=== PATIENT | male | born 1935 | race Caucasian/White ===

== ENCOUNTER 2019-06-29 14:23 | Inpatient (IN) | payer MEDICARE, SELFPAY | END 2019-07-11 13:34 | DRG 690 | LOC: CHS2ND 06-26 10:49 | PROVIDERS: Admitting Provider Emergency Medicine; Visit Provider Emergency Medicine | DX: N39.0 Urinary tract infection, site not specified (principal); I48.20 Chronic atrial fibrillation, unspecified; F05 Delirium due to known physiological condition; I10 Essential (primary) hypertension; E11.9 Type 2 diabetes mellitus without complications; E78.5 Hyperlipidemia, unspecified; M54.9 Dorsalgia, unspecified; F03.90 Unspecified dementia, unspecified severity, without behavioral disturbance, psychotic disturbance, mood disturbance, and anxiety; S91.302D Unspecified open wound, left foot, subsequent encounter; S92.215D Nondisplaced fracture of cuboid bone of left foot, subsequent encounter for fracture with routine healing; Z91.81 History of falling | CPT/HCPCS: 36415; 70450; 70551; 72100; 73630; 73700; 73720; 80053; 82550; 83735; 84100; 85025; 85027; 85610; 85652; 86140; 87040; 87070; 87077; 87086; 87088; 87185; 87186; 87205; 97110; 97116; 97168; 97530; 97535; A9270; A9577; J1815; L2112 ==

== ENCOUNTER 2019-08-30 07:06 | Observation (INO) | payer MEDICARE, SELFPAY ==
[2019-08-30] VITALS (13 sets, daily range): BP systolic 111–182; BP diastolic 50–97; PULSE 55–92; RESP 16–20; TEMP 35.8–36.6; O2SAT 90–100; BMI 28.3
--- NOTE | ~2019-08-30 | XR_ITS ---
EXAMINATION: XR chest 1V portable EXAM DATE: 08/30/2019 08:10 INDICATION: Fall, seizure. TECHNIQUE: Portable AP frontal chest x-ray was obtained. Comparison is made to prior examination from 07/25/2019. FINDINGS: The lungs are clear. There are no pleural effusions. Cardiac silhouette is prominent but magnified on this AP technique. There is no pneumothorax suspected. The bones and soft tissues are unremarkable. IMPRESSION: No acute cardiopulmonary findings. Reviewed, dictated and finalized at location B. HOUSE DELIVERY DRIVER
--- NOTE | ~2019-08-30 | CT_ITS ---
EXAMINATION: CT brain wo con, CT cervical spine wo con EXAM DATE: 08/30/2019 08:09 INDICATION: Fall, head injury. Seizure. TECHNIQUE: Spiral CT of the head was performed without contrast. Axial, coronal and sagittal images were reviewed. Spiral CT of the cervical spine was performed without contrast. Axial images were rev iewed. Coronal and sagittal reformatted images were also reviewed. The dose-length product (DLP) fo r this examination was 605.33 (accession [id number]), 526.77 (accession [id number]) mGy-cm. The exposure was tailored according to patient size, and iterative reconstruction (ASIR) was used as additional dose reduction technique. Comparison is made to prior examination from 08/07/2019. FINDINGS: HEAD CT: There is no acute intraparenchymal hemorrhage. No evidence of intraparenchymal brain mass l esion. No evidence of acute infarction. There is mild to moderate periventricular and subcortical hy podensity, nonspecific but probably related to small vessel ischemic disease. There is mild to mode rate prominence of the sulci and ventricles related to cerebral atrophy. There is intracranial spencer tid arteriosclerosis. There is no mass effect or midline shift. There is no obstructive hydrocephal us suspected. There are no extra-axial collections. There are no acute calvarial fractures. Patien t has had bilateral ocular lens surgery. There is moderate-sized right frontal scalp contusion/hemat darlene. The visualized sinuses and mastoid air cells are well aerated. CERVICAL CT: There is no evidence of acute cervical fracture. The odontoid process is intact. Pre- dens space is normal. Prevertebral soft tissue is normal. There are no soft tissue abnormalities id entified. There is no disc space widening or traumatic vertebral body subluxation suspected. Advanc ed cervical spondylosis. A detailed level by level evaluation of spondylosis can be added as addendu m if requested. IMPRESSION: 1. No acute intracranial or cervical findings. 2. Age-related intracranial findings. 3. Advanced cervical spondylosis. 4. Frontal scalp contusion/hematoma Reviewed, dictated and finalized at location B. CLEANER IMPRESSION: 1. No acute intracranial or cervical findings. 2. Age-related intracranial findings. 3. Advanced cervical spondylosis. 4. Frontal scalp contusion/hematoma
--- NOTE | 2019-08-30 07:21 | ECG_ITS ---
Measurements Intervals [place] Rate: 66 P: FL: 0 QRS: 81 QRSD: 109 T: 56 QT: 411 QTc: 431 Interpretive Statements ATRIAL FIBRILLATION INCOMPLETE RIGHT BUNDLE BRANCH BLOCK BASELINE ARTIFACT- II, III, AVF ABNORMAL ECG Electronically Signed On 08-30-2019 9:54:04 REPORTER by Pradeep Mercado D.O.
[2019-08-30] MEDS: LORAZEPAM INJ 2 MG/ML VIAL 0.5 MG IV PUSH (07:29)
[2019-08-30] MEDS: TETANUS,DIPHTHERIA,AC PERTUSSIS ADULT 0.5 ML (ADACEL) IM (07:30)
--- NOTE | 2019-08-30 07:37 | ED.SEIZURE ---
HPI - Seizure General Chief Complaint: Seizure Stated Complaint: fell seizures Time Seen by Provider: 08/30/19 07:20 Source: EMS, RN notes reviewed, old records reviewed and other (correction records) Mode of arrival: EMS Limitations: clinical condition History of Present Illness HPI Narrative: Ernst is a 54-year-old male patient. He is brought to the emergency room by ambulance from the local assisted. History is from the assisted papers and from the phone conversation between the emergency room nurse and the assisted personnel. Ernst was seen yesterday in the emergency room after he had a seizure. He was evaluated in the emergency room and sent back to the assisted. He was evaluated . Patient is a DNR with comfort measures only. A CT of the head was not done yesterday. According to the assisted records, the patient has muscle wasting and atrophy. He has a fracture of the cuboid bone in the left foot and yesterday he had a boat on the left foot. Today he does not have a boot. He has receptive -expressive language disorder. He has history of behavioral problems. He has history of insomnia, hypertension, muscle weakness, generalized. He had history of repeated falls. History of hypertension and type 2 diabetes mellitus without complications. There is diagnosis of unspecified altered mental status in the assisted diagnosis information. Today the patient had an unwitnessed fall. He was found lying face down on the floor by staff. staff checked his vital signs, call the EMS and sent him to the emergency room by ambulance. The patient appears to be postictal upon arrival. Both pupils are about 3 mm round and they do react to light. There is a hematoma to the right frontal area. There are skin abrasions to the forehead and to the dorsal aspect of the right and. The patient is noted to be moving all 4 extremities. He flexes the hips and knees. He moves both upper extremities. There is no external rotation of the feet. He mumbles a few words which are not intelligible. The only scar of surgery is around the umbilicus which apparently could be from an umbilical hernia repair. I do not see any pacemaker implant in the chest. There is a diagnosis of atrial fibrillation also on the chart. However, according to the assisted chart, he is not on any anticoagulation. an electrocardiogram done in the emergency room shows atrial fibrillation with a ventricular rate of bpm. No history is obtainable from the patient. From the assisted personal report to our emergency room nurse, there was no history of any vomiting. The abdomen is soft and no tenderness could be elicited. Normal bowel sounds are heard. yesterday the patient was apparently found to have some UTI and he was started on Augmentin twice a day. His other medications include 50 mg p.o. daily head. This may be both for hypertension as well as rate control. MD complaint: seizure Onset (ago): unknown Description of Episode: other ( Unknown how long he was down on the floor.) Witnessed: No Seizure History: Yes (No history of seizure before yesterday.) Place: correction Possible Precipitating Event: other ( unknown) Associated symptoms: confusion and other ( No history of fever. Precipitating events unknown.) Treatments prior to arrival: other ( See HPI narrative for details) Related Data Home Medications Medication Instructions Recorded Confirmed amoxicillin-pot clavulanate 1 tablet PO Q12H 08/30/19 08/30/19 [Augmentin] cranberry fruit [cranberry] 450 mg PO TID 08/30/19 08/30/19 fluticasone propionate [Allergy 1 spray NASAL DAILY PRN 08/30/19 08/30/19 Relief (fluticasone)] loratadine [Allergy Relief 10 mg PO DAILY PRN 08/30/19 08/30/19 (loratadine)] magnesium hydroxide [Milk Of 5 ml PO DAILY PRN 08/30/19 08/30/19 Magnesia Concentrated] metoprolol succinate 50 mg PO DAILY 08/30/19 08/30/19 Allergies Allergy/AdvReac Type Severity
[2019-08-30 07:43] LABS: Basophils Absolute Auto 0.04 K/mm3 (0.00-0.10); Basophils Percent Auto 0.3 % (0.0-1.0); Eosinophils Absolute Auto 0.12 K/mm3 (0.02-0.50); Eosinophils Percent Auto 0.9 % (1.0-6.0); Hematocrit 38.9 % (37.0-46.0); Hemoglobin 13.4 g/dL (12.4-15.3); Immature Granulocyte Absolute 0.06 K/mm3 (0.00-0.00); Immature Granulocyte Percent A 0.4 % (0.0-0.0); Lymphocytes Absolute Auto 1.69 K/mm3 (1.10-4.50); Lymphocytes Percent Auto 12.6 % (18.0-42.0); Mean Corpuscular HGB Conc 34.4 g/dL (32.0-36.0); Mean Platelet Volume 9.4 fl (8.7-11.0); Monocytes Absolute Auto 0.75 K/mm3 (0.10-0.90); Monocytes Percent Auto 5.6 % (2.0-11.0); Neutrophils Absolute Auto 10.8 K/mm3 (1.7-7.2); Neutrophils Percent Auto 80.2 % (50.0-70.0); Platelet Count Result 251 K/mm3 (150-420); Red Blood Count 4.47 M/mm3 (4.70-6.10); Red Cell Distribution Width 13.6 % (11.6-14.4); White Blood Count 13.5 K/mm3 (4.8-10.8)
[2019-08-30 07:56] LABS: INR 1.1; Partial Thromboplastin Time 26.7 SEC (22.3-31.6); Prothrombin Time 11.1 Seconds (9.64-11.0)
[2019-08-30 08:09] LABS: Creatine Kinase 154 U/L (39-308); Magnesium 1.4 mg/dL (1.8-2.4)
[2019-08-30 08:11] LABS: Troponin I < 0.02 ng/mL (0.00-0.056)
[2019-08-30 08:16] LABS: Lactic Acid 4.9 mmol/L (0.4-2.0)
[2019-08-30] MEDS: MAGNESIUM SULF 2 GM/WATER 50ML 2 GM/50 ML BAG IVPB (08:41)
[2019-08-30 08:44] LABS: Alanine Aminotransferase 16 U/L (16-63); Albumin Level 3.4 g/dL (3.4-5.0); Alkaline Phosphatase 63 U/L (46-116); Anion Gap 19.1 mmol/L (7-16); Aspartate Amino Transferase 22 U/L (15-37); Bilirubin,Total 0.9 mg/dL (0.00-1.00); Blood Urea Nitrogen 14 mg/dL (7-18); Calcium 8.6 mg/dL (8.5-10.1); Carbon Dioxide 23 mmol/L (21-32); Chloride 100 mmol/L (98-108); Estimated CRCL calculation 41 ml/min; Estimated Glomerular Filt Rate > 60; Glucose 176 mg/dL (70-99); Osmolality Calculated 290 mOsm/kg (285-295); Potassium 4.1 mmol/L (3.5-5.1); Sodium 138 mmol/L (136-145)
[2019-08-30 08:45] LABS: Erythrocyte Sedimentation Rate 15 mm/hr (0-20)
--- NOTE | 2019-08-30 08:50 | PC.NURSE ---
ERP spoke c pts. POA/niece and discussed pts. care and POC. Pt. will be made 23hr. obs.
--- NOTE | 2019-08-30 09:12 | PC.NURSE ---
Call placed to floor, spoke to Buffy, bed 207 assigned for 23 hr. obs.
--- NOTE | 2019-08-30 09:50 | PC.NURSE ---
Up with difficulty, 2 assist, very unsteady, voided in urinal being held by staff, back to bed, attends applied, remains confused, does follow simple direction
--- NOTE | 2019-08-30 10:02 | PC.NURSE ---
Here from nursing due to fall, possible sz, presents confused, restless, oriented to self, side rails up and call light in reach, oxygen not started due to sats 97%, dressing from her to left forearm, left elbow and right hand in place
[2019-08-30] MEDS: SODIUM CHLORIDE 0.9% IV 1,000 ML 75 ML IV CONT (10:31)
[2019-08-30 11:48] LABS: Glucose Point of Care 150 (65-105)
--- NOTE | 2019-08-30 12:27 | PM.IMHP ---
H&P: HPI History of Present Illness Chief complaint: fell seizures Narrative: Ernst Hinojosa is a 84 year old male that presented to the ED post fall with head trauma secondary to possible seizure activity. Past medical history of AFib, chronic back pain, type 2 diabetes, hypertension, according to notes patient resides in a local alf. patient came to our emergency room yesterday after he had a possible seizure. According to alf staff members patient tremors. He was seen in our emergency room yesterday and diagnosed with urinary tract infection due to leukocytes in his. Patient does have a long history of urinary tract infections last August 15, 2019. He does have a fracture of cuboid bone in his sleep Dr. foot that he wears a boot on and does have a history of receptive expressive language disorder and history of behavior problems with insomnia. It was also noted that he was also confused. Patient did have an unwitnessed fall while in the alf today. They are unsure of how long he had been on the floor. He was found face down on the floor by staff members. EMS was called and patient was transported to this ED . He does have a hematoma on his right frontal area with bruises around both eyes. He is able to follow commands, move all extremities, hand school admissions representative equal, able to answer questions patient is being admitted for altered mental status, syncopal episode with possible seizure activity and the UTI. There was a chest x-ray performed while in the ED which was unremarkable the CT of the head did show frontal scalp contusion and hematoma the cervical spine CT did indicate advanced cervical spondylosis , EKG yesterday and today indicate a AFib. Patient's white blood cells on admission was 14.7 is now 13.5 lactic acid was 4.9 on admission is currently within normal limits. Magnesium was 1.4 he did receive a Mag rider. As noted earlier patient's UA leukocytes was positive. Patient's will continue antibiotics immediately placed on IV antibiotics due to his possible inability to swallow. Patient's vital signs are 35.8, 55, 20, 97%, 182/97. Patient previous blood pressure week reading was 113/50. In his previous heart rate was within normal limits. Patient denies SOB, CP, palpitation, extremity numbness, lightheadness, dizziness, constipation, diarrhea, or chills or fever. Review of Systems Constitutional: Constitutional: Denies chills, Reports fatigue and Denies headache(s) Cardiovascular: Cardiovascular: Denies chest pain, Denies chest pain at rest, Denies pedal edema and Denies lightheadedness Respiratory: Respiratory: Denies chest congestion, Denies cough, Denies dyspnea and Denies wheezing Gastrointestinal: Gastrointestinal: Reports no additional gastrointestinal complaints Musculoskeletal: Musculoskeletal: Reports no additional musculoskeletal complaints Psychiatric: Psychiatric: Reports confusion [facility] Past Medical History Medical History (Updated 08/30/19 @ 13:21 by MARV Sprague) Atrial fibrillation (Unknown) Chronic back pain greater than 3 months duration (Unknown) DMII (diabetes mellitus, type 2) (Unknown) HTN (hypertension) Hyperlipidemia Surgical History Surgical History (Updated 08/30/19 @ 07:58 by Damon Luciano MD) H/O umbilical hernia repair Family History Family History Mother Family history of type 2 diabetes mellitus Social History Social History Smoking status: Unknown if ever smoked Tobacco type: cigarettes Second hand tobacco smoke exposure: No Smoking end date: 08/21/98 Alcohol intake: former Substance use: never Substance use type: does not use Additional living arrangements comments: ,has a female friend dine-in with him 3-4 nights every week. 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 [employer]
--- NOTE | 2019-08-30 12:50 | PC.NURSE ---
Assisted patient with use of urinal, stayed in bed this time, tolerated better, able to take some oral fluids wthout cough or trouble swallowing, fluids infusing, more oriented, is oriented to person and place, recognizes friend that is here, telemetry afib, rate controlled
[2019-08-30 13:17] LABS: Add Urine Microscopic? NO; Appearance Urine Clear (Clear); Bilirubin Urine Negative (Negative); Blood Urine Negative (Negative); Color Urine Yellow (Yellow); Glucose Urine UA Negative (Negative); Ketones Urine Negative (Negative); Leukocyte Esterase Ur Negative LEU/UL (Negative); Nitrate Urine Negative (Negative); Protein Urine Negative (Negative); Specific Grav Ur 1.015 (1.010-1.020); Urobilinogen Urine 0.2 mg/dL (0.2-1.0)
--- NOTE | 2019-08-30 13:58 | PC.NURSE ---
Dressing to arms dry and intact at this time, fluids infusing, telemetry afib, remains oriented to person, can be argumentative at times, mostly cooperative, side rails up and call light in reach
--- NOTE | 2019-08-30 14:50 | PC.NURSE ---
Patient in bed with family at bedside. No evidence of seizure activity, patient alert, confused at times. Afib per monitoring coordinator.
[2019-08-30] MEDS: IBUPROFEN 400 MG TABLET PO (15:10)
[2019-08-30] MEDS: LIDOCAINE 5% PATCH 1 PATCH TRANSDERM (15:11)
--- NOTE | 2019-08-30 15:50 | PC.NURSE ---
Patient in bed resting with family at bedside. No seizure activity. Patient remains afib per telemetry, chronic condition.
[2019-08-30 16:57] LABS: Glucose Point of Care 131 (65-105)
[2019-08-30] MEDS: metFORMIN HCL 500 MG TABLET PO (17:00)
[2019-08-30] MEDS: MAGNESIUM OXIDE 400 MG TABLET PO (17:01)
--- NOTE | 2019-08-30 17:50 | PC.NURSE ---
Patient sitting up in bed, vitals remain stable. No evidence of seizure activity observed. Patient remains in afib per bus monitor, usual for patient. Visitors in room
[2019-08-30] MEDS: TEMAZEPAM 15 MG CAPSULE PO ×2 (18:49→21:24)
--- NOTE | 2019-08-30 18:50 | PC.NURSE ---
Patient in bed watching television. VSS. Telemetry monitoring continues, patient in Afib, chronic condition. No seizure activity observed.
--- NOTE | 2019-08-30 19:50 | PC.NURSE ---
Patient in bed resting quietly. Afib per telemetry, chronic condition. No evidence of seizure activity.
--- NOTE | 2019-08-30 20:50 | PC.NURSE ---
Patient in bed resting with eyes closed. VSS. Afib per tele, persistent condition. No evidence of seizure activity observed.
[2019-08-30] MEDS: SIMVASTATIN 10 MG TABLET 20 MG PO (21:24)
[2019-08-30] MEDS: MELATONIN 3 MG TABLET PO (21:24)
[2019-08-30 21:35] LABS: Glucose Point of Care 157 (65-105)
--- NOTE | 2019-08-30 21:50 | PC.NURSE ---
Patient in bed resting comfortably. VSS. Telemetry monitoring continues, afib per patients usual condition. No seizure activity noted.
--- NOTE | 2019-08-30 22:11 | PC.NURSE ---
Addendum entered by Estrella Gill RN 08/30/19 22:13: Correct time 16:50 Original Note: Patient sitting up in bed, afib per telemetry monitoring continues, persistent condition. VSS. No seizure activity observed. Family at bedside
--- NOTE | 2019-08-31 00:47 | PC.NURSE ---
Asleep, no distress, takes oral fluids well, telemetry afib 40-50's, no ectopics noted, side rails up for safety and room near desk, bed alarm
--- NOTE | 2019-08-31 02:36 | PC.NURSE ---
Sleeping, no distress, telemetry afib, call light near, checking on frequently, side rails up for safety
[2019-08-31 03:20] VITALS: BP 130/58; PULSE 61; RESP 18; TEMP 36.1; O2SAT 95
--- NOTE | 2019-08-31 03:22 | PC.NURSE ---
Slept through vital signs being taken, arouses to voice, falls back to sleep immediately, telemetry afib
--- NOTE | 2019-08-31 04:19 | PC.NURSE ---
Assisted patient to stand then encouraged to sit to use urinal, argumentative at first, did follow direction, remains confused to time and place, back to laying position in bed with staff assist, no change in telemetry remains afib, call light in reach and side rails up
[2019-08-31 05:18] LABS: Basophils Absolute Auto 0.04 K/mm3 (0.00-0.10); Basophils Percent Auto 0.4 % (0.0-1.0); Eosinophils Absolute Auto 0.26 K/mm3 (0.02-0.50); Eosinophils Percent Auto 2.5 % (1.0-6.0); Hemoglobin 13.9 g/dL (12.4-15.3); Immature Granulocyte Absolute 0.05 K/mm3 (0.00-0.00); Immature Granulocyte Percent A 0.5 % (0.0-0.0); Lymphocytes Absolute Auto 2.08 K/mm3 (1.10-4.50); Lymphocytes Percent Auto 20.3 % (18.0-42.0); Mean Corpuscular HGB Conc 33.9 g/dL (32.0-36.0); Mean Corpuscular Hemoglobin 29.4 pg (27.0-31.0); Mean Corpuscular Volume 86.9 fL (78.0-102.0); Mean Platelet Volume 9.6 fl (8.7-11.0); Monocytes Absolute Auto 0.87 K/mm3 (0.10-0.90); Monocytes Percent Auto 8.5 % (2.0-11.0); Neutrophils Percent Auto 67.8 % (50.0-70.0); Platelet Count Result 216 K/mm3 (150-420); Red Blood Count 4.72 M/mm3 (4.70-6.10); Red Cell Distribution Width 13.9 % (11.6-14.4); White Blood Count 10.3 K/mm3 (4.8-10.8)
[2019-08-31 05:38] LABS: Alanine Aminotransferase 14 U/L (16-63); Albumin Level 3.2 g/dL (3.4-5.0); Alkaline Phosphatase 59 U/L (46-116); Anion Gap 11.9 mmol/L (7-16); Aspartate Amino Transferase 19 U/L (15-37); Blood Urea Nitrogen 13 mg/dL (7-18); Calcium 8.8 mg/dL (8.5-10.1); Carbon Dioxide 29 mmol/L (21-32); Chloride 101 mmol/L (98-108); Estimated CRCL calculation 50 ml/min; Estimated Glomerular Filt Rate > 60; Glucose 127 mg/dL (70-99); Osmolality Calculated 288 mOsm/kg (285-295); Potassium 3.9 mmol/L (3.5-5.1); Sodium 138 mmol/L (136-145); Total Protein 6.9 g/dL (6.4-8.2)
--- NOTE | 2019-08-31 06:11 | PC.NURSE ---
sat up to use urinal, refused help, did allow us to stand by, returned to bed on own, very unsteady, bed alarm continued
[2019-08-31 07:54] VITALS: BP 149/75; PULSE 78; RESP 16; TEMP 36; O2SAT 97
[2019-08-31] MEDS: ACETAMINOPHEN 500 MG TABLET 1000 MG PO (09:21)
[2019-08-31 09:30] VITALS: PULSE 78
[2019-08-31] MEDS: MAGNESIUM OXIDE 400 MG TABLET PO ×2 (09:30→13:00)
[2019-08-31] MEDS: metFORMIN HCL 500 MG TABLET PO (09:30)
[2019-08-31] MEDS: METOPROLOL SUCCINATE EXT REL 50 MG TABCR PO (09:30)
[2019-08-31] MEDS: ASPIRIN 325 MG ENTERIC TABLET PO (09:30)
[2019-08-31 10:41] LABS: Magnesium 1.6 mg/dL (1.8-2.4); Phosphorus 4.3 mg/dL (2.6-4.7)
[2019-08-31] MEDS: ESCITALOPRAM OXALATE 10 MG TABLET PO (10:58)
[2019-08-31 11:30] LABS: Glucose Point of Care 177 (65-105)
[2019-08-31] MEDS: MAGNESIUM SULF 2 GM/WATER 50ML 2 GM/50 ML BAG IVPB (11:33)
[2019-08-31 12:00] VITALS: BP 136/76; PULSE 78
[2019-08-31 12:05] VITALS: BP 144/67; PULSE 74
--- NOTE | 2019-08-31 12:08 | PM.DS ---
DS: Diagnosis Admitting Diagnosis Admitting Diagnosis: Unspecified convulsions Discharge Diagnosis (1) New onset seizure: Code(s): R56.9 - Unspecified convulsions Status: Acute Assessment and Plan: according to staff reproduction production manager members at longterm - CT of the head indicate right frontal hematoma/ contusion - continue Concussion monitoring as noted in the Discharge Instructions - continue neuro checks - Telemetry has shown no ectopy or new arrthymia, he continues to have chronic a.fib. -Sagarist Robin Called to Dr. Huerta neurologist at [facility] at [phone] to discuss patient. We have decided that we will monitor the patient with neuro checks and if he has any more witnessed seizure activities we will transfer patient to [facility]. - No seizure activity noted for the past 24 hours. Will discharge patient back to longterm for continued care and monitoring. - will place patient on fall precautions - patient currently not on medication for seizures at this time (2) Atrial fibrillation: Qualifiers: Atrial fibrillation type: longstanding persistent Qualified Code(s): I48.11 - Longstanding persistent atrial fibrillation Code(s): I48.91 - Unspecified atrial fibrillation Status: Acute Assessment and Plan: controlled - patient currently on aspirin high risk for falls ( patient and family previously discussed and agreed to discontinue Coumadin due to his high number of falls while at home/hospital/longterm) - continue metoprolol - patient did have 1 isolated incident of a heart rate of 55 (lowest recorded during this hospitalization), -longterm will continue to monitor patient and titrate medication as needed - continue telemetry and vital signs as ordered (3) Diabetes mellitus: Qualifiers: Diabetes mellitus complication status: without complication Diabetes mellitus senior care insulin use: without senior care use Diabetes mellitus type: type 2 Qualified Code(s): E11.9 - Type 2 diabetes mellitus without complications Code(s): E11.9 - Type 2 diabetes mellitus without complications Status: Acute Assessment and Plan: blood sugar below 200 - continue Accu-Cheks as ordered, metformin, low dose sliding scales added with hypoglycemic protocol. -Will adjust medication as needed -no hypoglycemia noted during hospitalization. (4) UTI (urinary tract infection): Code(s): N39.0 - Urinary tract infection, site not specified Status: Acute Assessment and Plan: - previous UA indicated leukocytes - the patient previously on Augmentin, changed IV antibiotics due to patient's inability to swallow at admission. - patient was eating and drinking and swallowing pills fine today, no difficulties whatsoever. - patient has a long history of UTIs. - no UA culture collected at this time patient previously started on antibiotics -WBC = 10.3 today - patient received IV antiobiotics while inpatient, but can return to oral antibiotics at this time/at discharge. (5) Left cuboid fracture: Code(s): S92.212A - Displaced fracture of cuboid bone of left foot, initial encounter for closed fracture Status: Acute Assessment and Plan: - continue to use boot - F/U with tank storage supervisor in 2 days. - examined both feet, no wounds - all healed, no edema, no swelling. (6) Chronic back pain greater than 3 months duration: Onset Date: Unknown Code(s): M54.9 - Dorsalgia, unspecified; G89.29 - Other chronic pain Status: Acute Assessment and Plan: - continue pain medication - was place lidocaine patch to back avoiding narcotics. controlled pain today, no complaints from patient and he is able to sit up and ambulate without discomfort. (7) Hyperlipidemia: Code(s): E78.5 - Hyperlipidemia, unspecified Status: Acute Assessment and Plan: continue statins (8) HTN (hypertension): C
[2019-08-31 12:10] VITALS: BP 139/83; PULSE 71
[2019-08-31] MEDS: LIDOCAINE 5% PATCH 1 PATCH TRANSDERM (13:00)
--- NOTE | 2019-08-31 14:00 | PC.NURSE ---
Report called to Shanta at [facility]
--- NOTE | 2019-08-31 14:11 | PC.NURSE ---
Patient transported off of floor to fpc by [facility] from [facility].
--- NOTE | 2019-09-06 10:22 | PC.NURSE ---
Discharge Call Back [phone] halfway RN stated patient is doing fine, There were no problems with the discharge instructions or medications.
== END 2019-08-31 14:10 ==
LOC: CHSED 07:53 → CHS2ND 09:18
PROVIDERS: Nurse Practitioner; Admitting Provider Surgery; Emergency Provider Surgery; PCP Family Medicine; Visit Provider Surgery
DX: R56.9 Unspecified convulsions (principal); E83.42 Hypomagnesemia; E87.2 Acidosis; S00.83XA Contusion of other part of head, initial encounter; N39.0 Urinary tract infection, site not specified; I48.20 Chronic atrial fibrillation, unspecified; S92.212D Displaced fracture of cuboid bone of left foot, subsequent encounter for fracture with routine healing; I10 Essential (primary) hypertension; E11.9 Type 2 diabetes mellitus without complications; E03.9 Hypothyroidism, unspecified; E78.5 Hyperlipidemia, unspecified; G89.29 Other chronic pain; M54.5 Low back pain; W19.XXXA Unspecified fall, initial encounter; Y92.129 Unspecified place in nursing home as the place of occurrence of the external cause; Z91.81 History of falling
CPT/HCPCS: 36415; 70450; 71045; 72125; 80053; 81003; 82550; 82553; 83605; 83735; 84100; 84484; 85025; 85610; 85652; 85730; 87040; 90471; 90715; 93005; 96361; 96365; 96366; 96367; 96375; 97161; 99285; A9270; G0378; J0696; J2060; J3475; J7030

== ENCOUNTER 2019-09-16 14:44 | Emergency (ER) | payer MEDICARE, SELFPAY ==
--- NOTE | ~2019-09-16 | CT_ITS ---
EXAMINATION: CT brain wo con DATE: 09/16/2019 16:44 INDICATION: Confusion. TECHNIQUE: Computed tomography (CT) of the head was performed without intravenous contrast. The mA wa s adjusted according to patient size. Iterative reconstruction technique was employed. The dose-lengt h product was 1135.00 mGy-cm. COMPARISON: Head CT 08/30/2019 FINDINGS: Motion artifact is noted. There are scattered areas of low attenuation in the cerebral whit e matter. There is no intracranial hemorrhage, acute infarction, or abnormal intracranial mass lesion . The ventricles are normal in size. There are likely changes of ocular lens replacement surgeries. T he mastoid air cells are normal. There is mild mucosal thickening in the paranasal sinuses. IMPRESSION: 1. Unchanged mild nonspecific cerebral white matter disease, which likely represents chronic small ve ssel ischemic disease. Reviewed, dictated and finalized at location A. EKEEPING MANAGER IMPRESSION: 1. Unchanged mild nonspecific cerebral white matter disease, which likely repre sents chronic small vessel ischemic disease.
--- NOTE | ~2019-09-16 | CT_ITS ---
EXAMINATION: CT abdomen pelvis wo con DATE: 09/16/2019 18:01 INDICATION: Sclerotic lesion. Frequent UTI. TECHNIQUE: Computed tomography (CT) of the abdomen and pelvis was performed without intravenous contr ast. The dose-length product was 992.96 mGy-cm. COMPARISON: CT dated 10/23/2008 and chest x-ray dated 09/16/2019 FINDINGS: There are groundglass opacities in the right lower lobe. Cardiomegaly. No significant pleur al or pericardial effusion. There are calcified granulomas in the spleen. There are gallstones. The s pleen, pancreas, adrenal glands and left kidney are unremarkable. There is a low-density mass in the right kidney measuring 2 cm, compatible with cysts. No hydronephrosis. There are renal arterial calci fications. There is atherosclerosis of the aorta without aneurysm. There appears to be chronic dissec tion unchanged. Mild diffuse bladder wall thickening with enlarged prostate gland. There is moderate- severe lumbar spondylosis. No osteolytic or osteoblastic lesions are seen. IMPRESSION: 1. Thickened bladder wall, likely due to outlet obstruction although cystitis should be considered in the appropriate clinical setting. Enlarged prostate gland. 2: Cholelithiasis. 3: Focal groundglass opacities right lower lobe, nonspecific. Reviewed, dictated and finalized at location A. SIVE GRINDER IMPRESSION: 1. Thickened bladder wall, likely due to outlet obstruction although cystitis s hould be considered in the appropriate clinical setting. Enlarged prostate glan d. 2: Cholelithiasis. 3: Focal groundglass opacities right lower lobe, nonspecific.
--- NOTE | ~2019-09-16 | XR_ITS ---
XR chest 1V portable 09/16/2019 15:40 Indication: Syncope. Atrial fibrillation. Procedure: 2 view chest Comparison: Comparison to multiple prior studies sequentially, with oldest reviewed study dated 11/06. Findings: Heart size normal. Left basilar atelectasis. No focal pneumonia, edema or effusion. No acut e osseous abnormality. There is atherosclerosis. There is sclerosis in the right clavicle and scapula . Consider metastatic disease there is a history of malignancy. Impression: 1: Left basilar atelectasis. 2: Sclerosis of the right clavicle and scapula. If there is a history of malignancy, consider metast atic disease. Reviewed, dictated and finalized at location A. CLOSING MACHINE TENDER Impression: 1: Left basilar atelectasis. 2: Sclerosis of the right clavicle and scapula. If there is a history of malig an, consider metastatic disease.
[2019-09-16 14:50] VITALS: BP 119/60; PULSE 74; RESP 20; TEMP 36.6; O2SAT 95
--- NOTE | 2019-09-16 15:16 | ED.AMS ---
HPI - Altered Mental Status General Chief Complaint: Altered Mental Status Stated Complaint: sent from doctor Source: family Mode of arrival: wheelchair Limitations: other ( has a boot on left foot from an old fracture. Has dementia) History of Present Illness HPI narrative: Ernst is an 84-year-old male patient. He is a resident at the [facility] he is brought to the emergency room by family. His and daughter are with him. History is obtained from the and daughter. Ernst has had problems with behavior. He has history of dementia. He gets aggressive at times. Recently he has fallen down a couple of times. He has had a fracture of the left foot and he is seeing the orthopedic surgeon. His recheck appointment with the orthopedic surgeon is next week. He had also fallen down about 10 days ago and had some ecchymosis to the face. This seems to be slowly resolving. He did not fall down today. However per the [facility] staff, Ernst has become aggressive. By the time he came to the emergency room, according to the and daughter, is back to baseline status. They say that he usually becomes aggressive and his behavior changes when he has a urinary tract infection. He has been recently treated for the same. Ernst is hard of hearing. He does understand when spoken close to the left ear. He uses hearing aids. He has been admitted to this hospital in the recent past for similar problems. Ernst has history of chronic atrial fibrillation. He had been on Coumadin but because of his repeated falls, he has been taken off of it. He currently is taking aspirin 325 mg daily. His rate is controlled at 74. He is allergic to nitrofurantoin and morphine. His other medications include escitalopram 10 mg daily ibuprofen, lidocaine patch loratadine magnesium hydroxide, magnesium oxide, melatonin. He has history of type 2 [id number] diabetes mellitus. He is on metformin 500 mg p.o. twice a day. For rate control is on metoprolol 50 mg daily. He has hypercholesterolemia and takes simvastatin 20 mg at bedtime. He is on temazepam 15 mg at bedtime p.r.n.. He recently has been on sulfa. complaint: altered mental status Timing confirmed by: family member Severity: moderate Consistency of symptoms: waxing and waning Context: history of similar presentation and diabetes Associated symptoms: other ( Ernst denies chest pain abdominal pain fever or cough.) Related Data Home Medications Medication Instructions Recorded Confirmed cranberry 450 mg PO TID 08/30/19 09/16/19 fluticasone propionate [Allergy 1 spray NASAL DAILY PRN 08/30/19 09/16/19 Relief (fluticasone)] loratadine [Allergy Relief 10 mg PO DAILY PRN 08/30/19 09/16/19 (loratadine)] magnesium hydroxide [Milk Of 30 ml PO DAILY PRN 08/30/19 09/16/19 Magnesia Concentrated] metoprolol succinate 50 mg PO DAILY 08/30/19 09/16/19 menthol 5 mg lozenges 5 mg PO .hs PRN each 09/05/19 09/16/19 Allergies Allergy/AdvReac Type Severity Reaction Status Date / Time morphine Allergy Intermediate Unknown Verified 08/30/19 07:38 nitrofurantoin Allergy Unknown Verified 08/30/19 07:38 Review of Systems Review of Systems: All systems reviewed & are unremarkable except as noted in HPI and below Constitutional: Constitutional: Reports as per HPI, Denies chills and Denies fever(s) Eyes: Eyes: Reports as per HPI and Denies change in vision ENT: Reports as per HPI, Denies dysphagia, Denies dizziness and Denies sore throat Cardiovascular: Cardiovascular: Reports as per HPI, Denies chest pain and Denies radiating jaw, neck or arm pain Respiratory: Respiratory: Reports as per HPI, Denies cough, Denies dyspnea and Denies wheezing Gastrointestinal: Gastrointestinal: Reports as per HPI, Denies abdominal pain, Denies diarrhea and Denies vomiting Genitourinary: Genitourinary: Reports no additional male genitourinary complaints, Denies hematuria and Denies dysur
[2019-09-16 15:33] LABS: Basophils Absolute Auto 0.06 K/mm3 (0.00-0.10); Basophils Percent Auto 0.5 % (0.0-1.0); Eosinophils Absolute Auto 0.27 K/mm3 (0.02-0.50); Eosinophils Percent Auto 2.1 % (1.0-6.0); Hematocrit 44.4 % (37.0-46.0); Hemoglobin 15.3 g/dL (12.4-15.3); Immature Granulocyte Absolute 0.05 K/mm3 (0.00-0.00); Immature Granulocyte Percent A 0.4 % (0.0-0.0); Lymphocytes Absolute Auto 1.93 K/mm3 (1.10-4.50); Lymphocytes Percent Auto 14.9 % (18.0-42.0); Mean Corpuscular HGB Conc 34.5 g/dL (32.0-36.0); Mean Corpuscular Hemoglobin 29.8 pg (27.0-31.0); Mean Corpuscular Volume 86.5 fL (78.0-102.0); Mean Platelet Volume 9.7 fl (8.7-11.0); Monocytes Absolute Auto 0.95 K/mm3 (0.10-0.90); Monocytes Percent Auto 7.3 % (2.0-11.0); Neutrophils Absolute Auto 9.7 K/mm3 (1.7-7.2); Neutrophils Percent Auto 74.8 % (50.0-70.0); Platelet Count Result 248 K/mm3 (150-420); Red Blood Count 5.13 M/mm3 (4.70-6.10)
[2019-09-16 15:44] LABS: Add Urine Microscopic? YES; Appearance Urine Clear (Clear); Bilirubin Urine Negative (Negative); Blood Urine Negative (Negative); Color Urine Yellow (Yellow); Glucose Urine UA Negative (Negative); Ketones Urine Negative (Negative); Leukocyte Esterase Ur Trace LEU/UL (Negative); Nitrate Urine Negative (Negative); Protein Urine Negative (Negative); Specific Grav Ur 1.015 (1.010-1.020); Urobilinogen Urine 0.2 mg/dL (0.2-1.0)
[2019-09-16 15:46] LABS: Partial Thromboplastin Time 27.3 SEC (22.3-31.6); Prothrombin Time 10.8 Seconds (9.64-11.0)
[2019-09-16 15:54] LABS: Bacteria Urine 1+ /hpf; RBC Urine 0-2 /hpf (0-2); Squamous Epithelial Cell Urine Occasional /hpf (Few)
[2019-09-16 16:01] LABS: Alanine Aminotransferase 23 U/L (16-63); Albumin Level 3.9 g/dL (3.4-5.0); Alkaline Phosphatase 67 U/L (46-116); Anion Gap 13.3 mmol/L (7-16); Aspartate Amino Transferase 24 U/L (15-37); Blood Urea Nitrogen 13 mg/dL (7-18); Calcium 8.8 mg/dL (8.5-10.1); Carbon Dioxide 28 mmol/L (21-32); Chloride 98 mmol/L (98-108); Creatine Kinase 170 U/L (39-308); Estimated CRCL calculation 44 ml/min; Estimated Glomerular Filt Rate > 60; Glucose 122 mg/dL (70-99); Osmolality Calculated 281 mOsm/kg (285-295); Potassium 4.3 mmol/L (3.5-5.1); Sodium 135 mmol/L (136-145); Thyroid Stimulating Hormone 0.84 uIU/mL (0.36-3.74); Total Protein 7.9 g/dL (6.4-8.2)
[2019-09-16 16:02] LABS: Troponin I < 0.02 ng/mL (0.00-0.056)
[2019-09-16 16:08] LABS: Lactic Acid Reflex 1.1 mmol/L (0.4-2.0)
--- NOTE | 2019-09-16 16:17 | PC.NURSE ---
Pt resting with family at bedside. No change in pt condition. Pt and aware they are waiting for ct scanner to come back up form having maintenance completed for ct scan head as ordered estimated time of completion per regulatory and compliance technician [id number]. Pt and family verbalize understanding.
--- NOTE | 2019-09-16 17:29 | PC.NURSE ---
Dr Luciano at bedside talking with pt and family.
[2019-09-16 17:33] VITALS: BP 151/85; PULSE 60; RESP 20; O2SAT 97
--- NOTE | 2019-09-16 17:33 | PC.NURSE ---
Pt and family aware of plan for ct abd/pelvis 2/[address] Luciano. Pt calm, cooperative.
--- NOTE | 2019-09-16 19:00 | PC.NURSE ---
No change in condition. Awaiting dispo per ER physician.
[2019-09-16 20:26] VITALS: BP 126/63; PULSE 58; RESP 20; O2SAT 95
== END 2019-09-16 20:28 ==
PROVIDERS: Emergency Provider Surgery; PCP Family Medicine
DX: R41.82 Altered mental status, unspecified (principal); I48.91 Unspecified atrial fibrillation; F03.90 Unspecified dementia, unspecified severity, without behavioral disturbance, psychotic disturbance, mood disturbance, and anxiety; E11.9 Type 2 diabetes mellitus without complications; I10 Essential (primary) hypertension; E78.5 Hyperlipidemia, unspecified
CPT/HCPCS: 36415; 70450; 71045; 74176; 80053; 81001; 82550; 82553; 83605; 84443; 84484; 85025; 85610; 85730; 87040; 99283; 99284; A9270

== ENCOUNTER 2019-11-06 07:43 | Emergency (ER) | payer MEDICARE, SELFPAY ==
--- NOTE | ~2019-11-06 | CT_ITS ---
EXAMINATION: CT brain wo con EXAM DATE: 11/06/2019 08:19 INDICATION: Post ictal confusion. Seizure. TECHNIQUE: Spiral CT of the head was performed without contrast. Axial, coronal and sagittal images were reviewed. The dose-length product (DLP) for this examination was 756.67 mGy-cm. The exposure w as tailored according to patient size, and iterative reconstruction (ASIR) was used as additional dos e reduction technique. There is no prior study for comparison. FINDINGS: Study is limited due to patient motion. There is no acute intraparenchymal hemorrhage. N o evidence of intraparenchymal brain mass lesion. No evidence of acute infarction. Please note that initial head CT has limited sensitivity for small or acute infarctions. There is mild periventricula r and subcortical hypodensity, nonspecific but probably related to small vessel ischemic disease. T here is mild prominence of the sulci and ventricles related to cerebral atrophy. Tiny calcified left- sided meningioma. There is intracranial carotid arteriosclerosis. There are no extra-axial collecti ons. There is no mass effect or midline shift. The orbits are unremarkable. Soft tissue is unremar kable. The visualized sinuses and mastoid air cells are well aerated. IMPRESSION: 1. No acute intracranial findings. 2. Chronic age related findings. Reviewed, dictated and finalized at location A.
[2019-11-06 07:43] VITALS: BP 127/48; PULSE 67; RESP 18; TEMP 36.5; O2SAT 92
--- NOTE | 2019-11-06 07:46 | ECG_ITS ---
Measurements Intervals [place] Rate: 83 P: MA: 0 QRS: 116 QRSD: 104 T: 138 QT: 384 QTc: 452 Interpretive Statements ATRIAL FIBRILLATION VENTRICULAR PREMATURE COMPLEX CONSIDER LIMB LEAD REVERSAL LOW QRS VOLTAGE IN LIMB LEADS BASELINE WANDER- I, II, AVR, AVL, AVF, V5-V6 ABNORMAL ECG Electronically Signed On 11-06-2019 8:35:00 CDT by Pradeep Mercado D.O.
--- NOTE | 2019-11-06 07:49 | ED.GENADULT ---
HPI - General Adult General Chief complaint: Altered Mental Status Stated complaint: ambulance Time Seen by Provider: 11/06/19 07:46 History of Present Illness HPI narrative: Ernst An 84-year-old male with a past medical history of recurrent UTI, weakness, dementia, hypertension, diabetes AFib, 1 previous seizure that was brought in for 2 seizures this morning by EMS. He reportedly had 1 previous seizure. However he had 2 seizures this morning that were described as generalized tonic-clonic seizures and lasted about 1 minutes. He did return to baseline. He is alert and oriented x1. However, he is confused at this time and cannot answer any questions. No previous symptoms were reported. Related Data Home Medications Medication Instructions Recorded Confirmed cranberry 450 mg PO TID 08/30/19 11/06/19 fluticasone propionate [Allergy 1 spray NASAL DAILY PRN 08/30/19 11/06/19 Relief (fluticasone)] loratadine [Allergy Relief 10 mg PO DAILY PRN 08/30/19 11/06/19 (loratadine)] magnesium hydroxide [Milk Of 30 ml PO DAILY PRN 08/30/19 09/18/19 Magnesia Concentrated] metoprolol succinate 50 mg PO DAILY 08/30/19 11/06/19 menthol 5 mg lozenges 5 mg PO .hs PRN each 09/05/19 11/06/19 Allergies Allergy/AdvReac Type Severity Reaction Status Date / Time morphine Allergy Intermediate Unknown Verified 10/30/19 16:20 nitrofurantoin Allergy Unknown Verified 10/30/19 16:20 Review of Systems Review of Systems: ROS unobtainable: unobtainable due to mental condition [facility] Past Medical History Medical History Acute UTI Atrial fibrillation (Unknown) Chronic back pain greater than 3 months duration (Unknown) Dementia Dementia DMII (diabetes mellitus, type 2) (Unknown) HTN (hypertension) Hyperlipidemia Left cuboid fracture Recurrent UTI Seizure disorder URI (upper respiratory infection) Weakness Surgical History Surgical History H/O umbilical hernia repair History of back surgery Family History Family History Mother Family history of type 2 diabetes mellitus Father Alcoholism Social History Social History Smoking status: Unknown if ever smoked Tobacco type: cigarettes Second hand tobacco smoke exposure: No Smoking end date: 08/21/98 Alcohol intake: former Substance use: never Substance use type: does not use Additional living arrangements comments: 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 Gender identity (if verbalized by the patient): Male Spiritual care concerns: No Agree to blood products: Yes Exam Const: General: no acute distress Other: Oriented x1, confused, poor speech HENMT: Other: normocephalic, bruising under his right eye, moist oropharynx Eyes: Conjunctivae: conjunctivae normal Pupils: Equal, round and reactive pupils present Neck: Neck: normal visual inspection Chest: Chest palpation & inspection: normal inspection of the chest Resp: Effort & Inspection: normal respiratory effort Auscultation: clear to auscultation bilaterally and no wheezes Cardio: Rate: regular rate Rhythm: regular rhythm Heart sounds: no murmurs GI: GI Palp: Yes Soft to palpation, No Tenderness to palpation present (GI), No Guarding due to palpation present (GI) and No Rigid due to palpation Back/Spine/Pelvis: Back: no CVA tenderness Skin: General skin exam: normal color Rashes: no rashes Neuro: General: moves all extremities Other: He is altered and more confused than baseline, however patient cannot cooperate with a full neuro exam cranial nerve testing Extrem: General: normal to inspection Psych: Other: very confused and does not respond appropriately Course Course Emergency Course: Ernst was see
--- NOTE | 2019-11-06 08:10 | PC.NURSE ---
pt to xray per stretcher for CT.
[2019-11-06 08:37] LABS: Add Urine Microscopic? YES; Appearance Urine Clear (Clear); Bilirubin Urine Negative (Negative); Blood Urine 3+ (Negative); Color Urine Yellow (Yellow); Glucose Urine UA Negative (Negative); Ketones Urine Negative (Negative); Leukocyte Esterase Ur Negative (Negative); Nitrate Urine Negative (Negative); Protein Urine 2+ (Negative); Urobilinogen Urine 0.2 mg/dL (0.2-1.0); pH Urine 6.5 (5.0-8.0)
[2019-11-06 08:42] LABS: Bacteria Urine Trace /hpf; RBC Urine 21-50 /hpf (0-2); WBC Urine 0-3 /hpf (0-3)
[2019-11-06 08:47] LABS: Amphetamine Screen Urine Negative (Negative); Barbiturate Screen Urine Negative (Negative); Benzodiazepines Screen Urine Negative (Negative); Cannabinoid Screen Urine Negative (Negative); Cocaine Screen Urine Negative (Negative); Methadone Screen Urine Negative (Negative); Opiate Screen Urine Negative (Negative); Phencyclidine Screen Urine Negative (Negative)
[2019-11-06 08:49] LABS: Basophils Absolute Auto 0.02 K/mm3 (0.00-0.10); Basophils Percent Auto 0.2 % (0.0-1.0); Eosinophils Absolute Auto 0.03 K/mm3 (0.02-0.50); Eosinophils Percent Auto 0.3 % (1.0-6.0); Hematocrit 43.4 % (37.0-46.0); Immature Granulocyte Absolute 0.06 K/mm3 (0.00-0.00); Immature Granulocyte Percent A 0.6 % (0.0-0.0); Lymphocytes Absolute Auto 0.65 K/mm3 (1.10-4.50); Lymphocytes Percent Auto 6.5 % (18.0-42.0); Mean Corpuscular HGB Conc 34.6 g/dL (32.0-36.0); Mean Corpuscular Hemoglobin 29.6 pg (27.0-31.0); Mean Corpuscular Volume 85.6 fL (78.0-102.0); Mean Platelet Volume 9.3 fl (8.7-11.0); Monocytes Absolute Auto 0.38 K/mm3 (0.10-0.90); Monocytes Percent Auto 3.8 % (2.0-11.0); Neutrophils Absolute Auto 8.9 K/mm3 (1.7-7.2); Neutrophils Percent Auto 88.6 % (50.0-70.0); Platelet Count Result 235 K/mm3 (150-420); Red Blood Count 5.07 M/mm3 (4.70-6.10); Red Cell Distribution Width 13.7 % (11.6-14.4)
[2019-11-06] MEDS: LORAZEPAM INJ 2 MG/ML VIAL IV PUSH (09:03)
[2019-11-06 09:07] LABS: Alanine Aminotransferase 19 U/L (16-63); Albumin Level 3.5 g/dL (3.4-5.0); Alkaline Phosphatase 79 U/L (46-116); Aspartate Amino Transferase 19 U/L (15-37); Bilirubin,Total 1.2 mg/dL (0.00-1.00); Blood Urea Nitrogen 14 mg/dL (7-18); Calcium 8.6 mg/dL (8.5-10.1); Carbon Dioxide 27 mmol/L (21-32); Chloride 100 mmol/L (98-108); Estimated Glomerular Filt Rate > 60; Glucose 212 mg/dL (70-99); Osmolality Calculated 286 mOsm/kg (285-295); Sodium 135 mmol/L (136-145); Total Protein 6.9 g/dL (6.4-8.2)
--- NOTE | 2019-11-06 09:07 | PC.NURSE ---
900 pt yelled out, nurse and doctor directly to pt room. pt found to have upper extremities both bent at elbows rigid and stiff. verbal order for ativan 2 mg iv, given as ordered. pt post dictal . activity lasted 3 min. 904 snoring respirations, erp attempted suction with no secretions.
[2019-11-06 09:08] LABS: Creatine Kinase 83 U/L (39-308); Ethanol < 3 mg/dL (0-6)
--- NOTE | 2019-11-06 09:13 | PCDIET ---
multiple attempts to notify emergency contact carolyn mack, unsuccessful. call to [facility] for transfer per dr newby. awaiting call back.
[2019-11-06 09:17] VITALS: BP 124/53; PULSE 89; RESP 20; O2SAT 98
[2019-11-06 09:36] LABS: HIV 1 P24 AG Negative (Negative); HIV 1/2 AB Negative (Negative)
[2019-11-06 09:38] VITALS: BP 130/60; PULSE 85; RESP 20; TEMP 37; O2SAT 99
--- NOTE | 2019-11-06 09:42 | PC.NURSE ---
0972 spoke with pt emergency contact carolyn mack, notified of need for transfer. encouraged to come to this facility prior to going to [place].
[2019-11-06 10:28] VITALS: BP 117/59; PULSE 78; RESP 20; TEMP 36.5; O2SAT 97
--- NOTE | 2019-11-06 10:35 | PC.NURSE ---
call to [facility] for transfer. awaiting arrival
--- NOTE | 2019-11-06 11:34 | PC.NURSE ---
1100 gbaas here, report given to JANNA, pt transferred to ems cot. no further seizure activity noted. update to carolyne that pt was leaving this facility.
[2019-11-08 12:17] LABS: Prolactin 9.2 ng/mL (***)
[2019-11-08 19:16] LABS: RPR Screen Non-Reactive (Non-Reactive)
== END 2019-11-06 11:05 | disposition short-term general hospital (02) ==
PROVIDERS: Emergency Provider Family Medicine
DX: G40.909 Epilepsy, unspecified, not intractable, without status epilepticus (principal); I48.91 Unspecified atrial fibrillation; E11.9 Type 2 diabetes mellitus without complications; I10 Essential (primary) hypertension; E78.5 Hyperlipidemia, unspecified; N39.0 Urinary tract infection, site not specified
CPT/HCPCS: 36415; 70450; 80053; 80307; 81001; 82550; 84146; 85025; 86592; 86703; 93005; 96374; 99283; 99285; J2060

== ENCOUNTER 2019-11-13 09:40 | Outpatient (CLI) | payer MEDICARE, SELFPAY ==
--- NOTE | ~2019-11-13 | XR_ITS ---
XR wrist RT min 3V 11/13/2019 10:07 Indication: Right wrist pain Procedure: 4 views right wrist Comparison: No prior studies for comparison. Findings: Mild degenerative changes of the triscaphe joint. Normal mineralization. There is extensive arterial calcification. There is chondrocalcinosis. No acute fracture or traumatic malalignment. No foreign bodies. There are degenerative changes of the first MCP joint. Impression: 1: Mild polyarticular osteoarthritis. Reviewed, dictated and finalized at location A. Impression: 1: Mild polyarticular osteoarthritis.
== END 2020-06-05 15:27 | disposition home or self-care (01) ==
PROVIDERS: PCP Family Medicine; Visit Provider Family Medicine
DX: M25.531 Pain in right wrist (principal)
CPT/HCPCS: 73110

== ENCOUNTER 2020-03-06 07:28 | Observation (INO) | payer MEDICARE, SELFPAY ==
[2020-03-06] VITALS (8 sets, daily range): BP systolic 92–130; BP diastolic 35–73; PULSE 57–92; RESP 18–20; TEMP 36.1–37.1; O2SAT 92–97; BMI 25.2
--- NOTE | ~2020-03-06 | US_ITS ---
EXAMINATION:US venous doppler LE BI INDICATION:Elevated d-dimer TECHNIQUE: Multiple grayscale, color flow and Doppler images of the bilateral lower extremity deep ve nous systems were obtained and reviewed. COMPARISON:No prior studies for comparison. FINDINGS: The common femoral, superficial femoral and popliteal veins demonstrate normal respiratory variation, augmentation and compressibility. Color flow is also seen within the posterior tibial, pe roneal, greater saphenous and profunda veins. IMPRESSION: 1: No lower extremity deep venous thrombosis. Reviewed, dictated and finalized at location B.
--- NOTE | ~2020-03-06 | XR_ITS ---
EXAMINATION: XR chest 1V portable 03/06/2020 08:06 INDICATION: Chest congestion. Seizure. PROCEDURE: AP portable chest COMPARISON: Comparison to multiple prior studies sequentially, with oldest reviewed study dated 02/2019. FINDINGS: The lungs are clear. The cardiomediastinal silhouette is within normal limits. There are no pleural effusions. There is no pneumothorax suspected. IMPRESSION: 1: NO ACUTE CARDIOPULMONARY DISEASE. Reviewed, dictated and finalized at location B.
--- NOTE | ~2020-03-06 | CT_ITS ---
EXAMINATION: CT brain wo con DATE: 03/06/2020 07:45 INDICATION: Seizures. Right facial droop. TECHNIQUE: Computed tomography (CT) of the head was performed without intravenous contrast. Sagittal and coronal reconstructions were performed. The mA was adjusted according to patient size. Iterative reconstruction technique was employed. The dose-length product was 605.33 mGy-cm. COMPARISON: head CT dated 11/06/2019 FINDINGS: No acute intracranial hemorrhage, acute infarction or abnormal extra axial fluid collection. There is moderate scattered white matter hypoattenuation consistent with chronic small vessel ischemic diseas e. Symmetric prominence of the sulci consistent with mild age-appropriate diffuse cerebral volume los s. Ventricles are normal and symmetric. No mass/mass effect. Changes of bilateral intraocular lens re placement. The orbits and mastoid air cells are normal. Mild mucosal thickening in the left ethmoid s inus. Changes of bilateral intraocular lens replacement. IMPRESSION: 1. No acute intracranial process. Dr. Dasilva discussed these findings with Dr. Lee at 7:47 AM . 2. Age-related changes including mild diffuse volume loss and moderate scattered white matter hypoatt enuation consistent with chronic small vessel ischemic disease. Reviewed, dictated and finalized at location A. IMPRESSION: 1. No acute intracranial process. Dr. Dasilva discussed these findings with Dr Lorne Lee at 7:47 AM. 2. Age-related changes including mild diffuse volume loss and moderate scattere d white matter hypoattenuation consistent with chronic small vessel ischemic di sease.
--- NOTE | ~2020-03-06 | CT_ITS ---
EXAMINATION: CTA chest PE protocol DATE: 03/06/2020 13:17 CDT INDICATION: Shortness of breath. Elevated d-dimer. Seizures. TECHNIQUE: Computed tomographic angiography (CTA) of the chest was performed with 100 mL Omnipaque-35 0 intravenous contrast. The dose-length product was 713.41 mGy-cm. Maximum intensity projection 3D-re constructions of the aorta and other arteries were constructed by the technologist on a separate work station. Automated exposure control and iterative reconstruction technique were employed. COMPARISON: Chest dated 03/06/2020 FINDINGS: The study is technically adequate without evidence for pulmonary embolism. Evaluation of th e right upper lobe pulmonary arteries limited by motion artifact. Cardiomegaly. There is atherosclero sis of the aorta and coronary arteries. No significant pleural or pericardial effusion. No thoracic l ymphadenopathy. No pneumothorax. No endobronchial lesions. There is dependent atelectasis. IMPRESSION: 1. No evidence for pulmonary embolism. No acute cardiopulmonary disease. Limited evaluation of right upper lobe pulmonary arteries due to motion artifact. Reviewed, dictated and finalized at location B. IMPRESSION: 1. No evidence for pulmonary embolism. No acute cardiopulmonary disease. Limite d evaluation of right upper lobe pulmonary arteries due to motion artifact.
--- NOTE | 2020-03-06 07:35 | ECG_ITS ---
Measurements Intervals [place] Rate: 101 P: LA: 0 QRS: 51 QRSD: 97 T: -10 QT: 349 QTc: 452 Interpretive Statements ATRIAL FIBRILLATION WITH RAPID VENTRICULAR RESPONSE INCOMPLETE RIGHT BUNDLE BRANCH BLOCK INFERIOR INFARCT, AGE INDETERMINATE ABNORMAL ECG Electronically Signed On 03-06-2020 8:05:39 CDT by Pradeep Mercado D.O.
--- NOTE | 2020-03-06 07:59 | PC.NURSE ---
call from radiologist at [facility], NO ACTIVE BRAIN BLEED PER DR GREENE
--- NOTE | 2020-03-06 08:03 | ED.GENADULT ---
HPI - General Adult General Chief complaint: Seizure Stated complaint: sent from detention History of Present Illness HPI narrative: Ernst is an 84M with a complex PMH including a seizure disorder, Afib, dementia, recurrent UTI, DMII, HTN, HLD and delerium that was brought to the ED by EMS for recurrent seizures. He has not had a sezure for several weeks but had 4 seizures starting at 0430 this morning and may have had some facial droop. Last known normal was 2000 last night. No other symptoms reported by staff. Upon presentation to the ED he was not speaking but after several minutes he would answer questions by shaking his head. He shook his head no to pain. He he shook his head yes when asked if he feels ok. He has an order for comfort care, and is DNR/DNI. Related Data Home Medications Medication Instructions Recorded Confirmed cranberry 450 mg PO TID 08/30/19 03/06/20 fluticasone propionate [Allergy 1 spray NASAL DAILY PRN 08/30/19 03/06/20 Relief (fluticasone)] magnesium hydroxide [Milk Of 30 ml PO DAILY PRN 08/30/19 03/06/20 Magnesia Concentrated] lamotrigine 100 mg PO DAILY 03/06/20 03/06/20 Allergies Allergy/AdvReac Type Severity Reaction Status Date / Time morphine Allergy Intermediate Unknown Verified 01/07/20 15:38 nitrofurantoin Allergy Unknown Verified 01/07/20 15:38 Review of Systems Review of Systems: ROS unobtainable: Yes unobtainable due to mental status [facility] Past Medical History Medical History Acute UTI Atrial fibrillation (Unknown) Chronic back pain greater than 3 months duration (Unknown) Dementia Dementia Diabetes mellitus DMII (diabetes mellitus, type 2) (Unknown) HTN (hypertension) Hyperlipidemia Left cuboid fracture Recurrent UTI Seizure disorder URI (upper respiratory infection) Weakness Surgical History Surgical History H/O umbilical hernia repair History of back surgery Family History Family History Mother Family history of type 2 diabetes mellitus Father Alcoholism Social History Social History Smoking status: Former smoker Tobacco type: cigarettes Second hand tobacco smoke exposure: No Smoking end date: 08/21/98 Alcohol intake: former Substance use: never Substance use type: does not use Additional living arrangements comments: 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 Gender identity (if verbalized by the patient): Male Spiritual care concerns: No Agree to blood products: Yes Exam Const: General: confusion Nutritional Appearance: well nourished Limitations: altered mental status HENMT: Head: normal to inspection Other: normocephalic, atraumatic Eyes: Conjunctivae: conjunctivae normal Pupils: Equal, round and reactive pupils present Neck: Neck: normal visual inspection and no lymphadenopathy Chest: Chest palpation & inspection: normal inspection of the chest Resp: Effort & Inspection: normal respiratory effort Auscultation: clear to auscultation bilaterally Cardio: Rate: regular rate Heart sounds: no murmurs Other: irregularly irregular rhythm GI: Inspection: non-distended GI Palp: Yes Soft to palpation, No Tenderness to palpation present (GI) and No Guarding due to palpation present (GI) : Testes: Testes normal Urinary Catheter: Urinary Catheter: patent and draining Skin: General skin exam: normal color Rashes: no rashes Neuro: Other: Spontaneously opens eye. Responds to questions with shaking his head purposefully withdrawals to pain No speaking. Moves all extremities. No facial droop on exam. Does not follow commands very much at all Extrem: General: normal to inspection and other (LE are the same diameter without erythema, tende
[2020-03-06 08:05] LABS: Base Excess ABG -5.1 mmol/L (0-2); HCO3 ABG 18.9 mmol/L (23-29); Modified Allen's Test Pass; Oxygen Content ABG 19.7 %vol (16.0-22.0); Oxygen Saturation ABG 94.4 % (95-97); Oxyhemoglobin 93.6 % (94-100); PCO2 ABG 32.5 mmHg (35-45); PO2 ABG 70.8 mmHg (75-85); Site Drawn LEFT RADIAL; pH ABG 7.38 (7.35-7.45)
[2020-03-06 08:06] LABS: Basophils Absolute Auto 0.02 K/mm3 (0.00-0.10); Basophils Percent Auto 0.1 % (0.0-1.0); Device NASAL CANNULA; Eosinophils Absolute Auto 0.01 K/mm3 (0.02-0.50); Eosinophils Percent Auto 0.1 % (1.0-6.0); Hematocrit 42.5 % (37.0-46.0); Hemoglobin 14.5 g/dL (12.4-15.3); Immature Granulocyte Absolute 0.08 K/mm3 (0.00-0.00); Immature Granulocyte Percent A 0.6 % (0.0-0.0); Lymphocytes Absolute Auto 0.62 K/mm3 (1.10-4.50); Lymphocytes Percent Auto 4.4 % (18.0-42.0); Mean Corpuscular HGB Conc 34.1 g/dL (32.0-36.0); Mean Corpuscular Hemoglobin 28.4 pg (27.0-31.0); Mean Corpuscular Volume 83.3 fL (78.0-102.0); Mean Platelet Volume 9.8 fl (8.7-11.0); Monocytes Absolute Auto 0.63 K/mm3 (0.10-0.90); Monocytes Percent Auto 4.4 % (2.0-11.0); Neutrophils Absolute Auto 12.9 K/mm3 (1.7-7.2); Neutrophils Percent Auto 90.4 % (50.0-70.0); Platelet Count Result 268 K/mm3 (150-420); Red Cell Distribution Width 13.4 % (11.6-14.4); White Blood Count 14.2 K/mm3 (4.8-10.8)
[2020-03-06 08:13] LABS: Appearance Urine Clear (Clear); Bilirubin Urine Negative (Negative); Color Urine Yellow (Yellow); Glucose Urine UA Negative (Negative); Ketones Urine Negative (Negative); Leukocyte Esterase Ur Trace (Negative); Nitrate Urine Negative (Negative); Protein Urine 1+ (Negative); Urobilinogen Urine 0.2 mg/dL (0.2-1.0)
[2020-03-06 08:18] LABS: Add Urine Microscopic? YES; Bacteria Urine 2+ /hpf; Blood Urine Trace-Intact (Negative); Squamous Epithelial Cell Urine None seen /hpf (Few)
[2020-03-06 08:18] LABS: INR 1.1
--- NOTE | 2020-03-06 08:20 | PC.NURSE ---
PT RESTING PER COT. MORE ALERT AND RESPONDS TO COMMANDS.
[2020-03-06 08:21] LABS: BNP 116 pg/mL (0-100); D Dimer 1.31 mg/L (0.19-0.50)
[2020-03-06 08:29] LABS: Amphetamine Screen Urine Negative (Negative); Barbiturate Screen Urine Negative (Negative); Benzodiazepines Screen Urine Negative (Negative); Cannabinoid Screen Urine Negative (Negative); Cocaine Screen Urine Negative (Negative); Methadone Screen Urine Negative (Negative); Opiate Screen Urine Negative (Negative); Phencyclidine Screen Urine Negative (Negative)
[2020-03-06 08:29] LABS: Alanine Aminotransferase 20 U/L (16-63); Albumin Level 3.4 g/dL (3.4-5.0); Alkaline Phosphatase 71 U/L (46-116); Anion Gap 16.6 mmol/L (7-16); Aspartate Amino Transferase 21 U/L (15-37); Bilirubin,Total 1.1 mg/dL (0.00-1.00); Blood Urea Nitrogen 10 mg/dL (7-18); Calcium 7.8 mg/dL (8.5-10.1); Carbon Dioxide 22 mmol/L (21-32); Chloride 98 mmol/L (98-108); Estimated CRCL calculation 38 ml/min; Estimated Glomerular Filt Rate > 60; Glucose 229 mg/dL (70-99); Osmolality Calculated 282 mOsm/kg (285-295); Potassium 3.6 mmol/L (3.5-5.1); Sodium 133 mmol/L (136-145)
[2020-03-06 08:32] LABS: Ammonia 22 umol/L (11-32); Ethanol < 3 mg/dL (0-6); Troponin I < 0.02 ng/mL (0.00-0.056)
[2020-03-06 08:37] LABS: Lactic Acid 6.5 mmol/L (0.4-2.0)
--- NOTE | 2020-03-06 08:42 | PC.NURSE ---
call to sushant counter caser, regarding admit for observation.
--- NOTE | 2020-03-06 08:45 | PC.NURSE ---
ely vela, at [facility] notified of admission.
--- NOTE | 2020-03-06 08:57 | PC.NURSE ---
poa here, erp speaking with her. ([place])
--- NOTE | 2020-03-06 09:28 | PC.NURSE ---
several verbal responses made per the patient. Patient to floor per stretcher with tech. Leydi
--- NOTE | 2020-03-06 09:32 | PM.IMHP ---
H&P: HPI History of Present Illness Chief complaint: SIEZURES <MARV Sprague - Last Filed: 03/06/20 10:19> Narrative: Ernst Hinojosa is a 84 year old male that presented to the ED [facility] for reported seizure activity at his nursing. He has a history of AFib, dementia, seizures, recurring UTIs, diabetes mellitus, hypertension, hyperlipidemia and delay area. At this time patient is lethargic and hard to arouse with confusion and alert to self only. He is a poor historian all information obtained from medical record. According to notes patient has not had a seizure for several weeks but has had 4 today starting at 4:30 a.m. with reported facial drooping. this assessment patient was able to open his eyes with stimulation and was only alert to self he was not able to follow commands. While in the ED patient D-dimer was elevated 1.31, his lactic acid was also elevated at 6.[address] and x-ray was unremarkable, his UA did indicate trace of blood leukocytes esterase wbc's and bacteria, his EKG indicated AFib with RVR. Patient will stay overnight as observation until his lamotrigrine levels return in his lactic acid decreases. I will also order a CTA and venous Doppler to rule out PE and DVT. <MARV Sprague - Last Filed: 03/06/20 10:19> Review of Systems Review of Systems: ROS unobtainable: Yes unobtainable due to mental status <MARV Sprague - Last Filed: 03/06/20 10:19> [facility] Past Medical History Medical History: Medical History (Updated 03/11/20 @ 09:15 by Ana Sofia NP) Acute respiratory distress Acute UTI AMS (altered mental status) (~06/26/19) Atrial fibrillation (Unknown) Chronic back pain greater than 3 months duration (Unknown) Dementia Dementia Diabetes mellitus DMII (diabetes mellitus, type 2) (Unknown) Elevated d-dimer HTN (hypertension) Hyperlipidemia Left cuboid fracture Recurrent UTI Seizure disorder URI (upper respiratory infection) Weakness <MARV Sprague - Last Filed: 03/06/20 10:19> Surgical History Surgical History: Surgical History H/O umbilical hernia repair History of back surgery <MARV Sprague - Last Filed: 03/06/20 10:19> Family History Family History: Family History Mother Family history of type 2 diabetes mellitus Father Alcoholism <MARV Sprague - Last Filed: 03/06/20 10:19> Social History Social History: Social History Smoking status: Former smoker Tobacco type: cigarettes Second hand tobacco smoke exposure: No Smoking end date: 08/21/98 Alcohol intake: unknown Substance use: unknown Substance use type: does not use Additional living arrangements comments: 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 Gender identity (if verbalized by the patient): Male Spiritual care concerns: No Agree to blood products: Yes <MARV Sprague - Last Filed: 03/06/20 10:19> Meds Home Medications and Allergies Home medications: Home Medications Medication Instructions Recorded Confirmed Type ibuprofen 400 mg PO Q12H PRN 30 Days tablet 07/11/19 03/06/20 Rx melatonin 3 mg PO HS 30 Days #30 tablet 07/11/19 03/06/20 Rx metformin [Glucophage] 500 mg PO BIDWM 30 Days #60 tablet 07/11/19 03/06/20 Rx simvastatin 20 mg PO HS 30 Days #30 tablet 07/11/19 03/06/20 Rx cranberry 450 mg PO TID 08/30/19 03/06/20 History fluticasone propionate [Allergy 1 spray NASAL DAILY PRN 08/30/19 03/06/20 History Relief (fluticasone)] magnesium hydroxide [Milk Of 30 ml PO DAILY PRN 08/30/19 03/06/20 History Magnesia Concentrated] lidocaine [Lidoderm] 2 patch TRANSDERMAL Q24H 30 Days 08/31/19 03/06/20 Rx #60 each sulfamethoxazole-trimethoprim 1 tablet PO Q12H 4
[2020-03-06] MEDS: SODIUM CHLORIDE 0.9% IV 500 ML 999 ML IV CONT (09:49)
--- NOTE | 2020-03-06 10:10 | PC.NURSE ---
Admitted to observation bed for sz activity, presents lethargic, does open eyes to verbal stimuli but falls back to sleep immediately able to state name, will not follow simple commands like take a deep breath, no edema noted, color pale, mm pink, warm and dry, niece here, patient unable to give information, did attempt to instruct on hospital stay, call light and general information, fluids initiated on arrival to floor
[2020-03-06] MEDS: lamoTRIgine 100 MG TABLET PO (10:33)
[2020-03-06] MEDS: metFORMIN HCL 500 MG TABLET PO ×2 (10:33→16:53)
[2020-03-06] MEDS: LIDOCAINE 5% PATCH 2 PATCH TRANSDERM (10:34)
[2020-03-06] MEDS: ENOXAPARIN 40 MG/0.4 ML SYRINGE SUB-Q (10:34)
--- NOTE | 2020-03-06 11:24 | PC.NURSE ---
To imaging for CT of chest due to elevated d dimer
[2020-03-06 11:56] LABS: Glucose Point of Care 171 (65-105)
--- NOTE | 2020-03-06 12:15 | PC.NURSE ---
Niece feeding patient lunch, no choking noted, tolerated fairly well, ate about 50% of meal
--- NOTE | 2020-03-06 13:30 | PC.NURSE ---
Resting in bed, sz precautions maintained, awakens to voice
[2020-03-06 14:45] LABS: Lactic Acid Reflex 3.3 mmol/L (0.4-2.0)
--- NOTE | 2020-03-06 16:00 | PC.NURSE ---
pt appears to be getting restless in bed, turning from side to side, fidgeting with tape/gauze, does not appear to be in distress, bed alarm on, vernon to gravity, no evidence of seizures, labs scheduled for tmrw to check lactic acid
[2020-03-06 16:57] LABS: Glucose Point of Care 127 (65-105)
[2020-03-06 17:11] LABS: Reflex Lactic Acid Yes or No Add Lactic
--- NOTE | 2020-03-06 18:34 | PC.NURSE ---
pt has pulled off tele leads, gown is off, pt found trying to pull out vernon tubing from genitals yelling i have to pee! , attempted to give education on vernon, pt is not able to repeat back info, pt is alert to self only
[2020-03-06 21:44] LABS: Glucose Point of Care 107 (65-105)
--- NOTE | 2020-03-06 21:45 | PC.NURSE ---
Patient very lethargic and unable to wake enough to take oral medications. Charge nurse notified.
--- NOTE | 2020-03-06 21:46 | PC.NURSE ---
notified of pt refusing to open eyes or take po medication, orders one time iv steven
[2020-03-06] MEDS: levETIRAcetam 500MG/NACL 100ML 500 MG/100 ML BAG 400 MG IVPB (23:30)
[2020-03-07] VITALS: BP 124/65; PULSE 70; PULSE 86; RESP 18; TEMP 36.2; O2SAT 96
--- NOTE | 2020-03-07 04:11 | PC.NURSE ---
Patient woke up very combative and pulling at telemetry and catheter. When technical writer and editor attempted to redirect the patient, he grabbed technical writer and editor's arm and stated, I'll break your fuckin arm. Other nurses came in to assist with the patient and the patient started hitting and kicking at nurses. Patient received PRN ativan.
[2020-03-07 04:17] VITALS: PULSE 72
--- NOTE | 2020-03-07 04:40 | PC.NURSE ---
Patient Appears to be sleeping now. No signs of distress are observed. Catheter is draining well, urine in drainage tube has a slight pink ting.
[2020-03-07 04:43] VITALS: BP 111/61; PULSE 74; RESP 16; TEMP 36.4; O2SAT 94
[2020-03-07 05:50] LABS: Mean Corpuscular HGB Conc 34.1 g/dL (32.0-36.0); Mean Corpuscular Volume 84.9 fL (78.0-102.0); Mean Platelet Volume 9.4 fl (8.7-11.0); Platelet Count Result 215 K/mm3 (150-420); Red Blood Count 4.83 M/mm3 (4.70-6.10); Red Cell Distribution Width 13.6 % (11.6-14.4); White Blood Count 10.9 K/mm3 (4.8-10.8)
[2020-03-07 06:02] LABS: Alanine Aminotransferase 18 U/L (16-63); Albumin Level 3.1 g/dL (3.4-5.0); Alkaline Phosphatase 60 U/L (46-116); Anion Gap 10.7 mmol/L (7-16); Aspartate Amino Transferase 20 U/L (15-37); Bilirubin,Total 1.2 mg/dL (0.00-1.00); Blood Urea Nitrogen 8 mg/dL (7-18); Calcium 8.3 mg/dL (8.5-10.1); Carbon Dioxide 27 mmol/L (21-32); Chloride 106 mmol/L (98-108); Estimated CRCL calculation 56 ml/min; Estimated Glomerular Filt Rate > 60; Glucose 126 mg/dL (70-99); Osmolality Calculated 290 mOsm/kg (285-295); Potassium 3.7 mmol/L (3.5-5.1); Sodium 140 mmol/L (136-145); Total Protein 6.6 g/dL (6.4-8.2)
[2020-03-07 07:48] VITALS: BP 121/71; PULSE 89; RESP 18; TEMP 36.1; O2SAT 95
[2020-03-07 08:20] LABS: Glucose Point of Care 121 (65-105)
[2020-03-07] MEDS: lamoTRIgine 100 MG TABLET PO (08:26)
[2020-03-07] MEDS: metFORMIN HCL 500 MG TABLET PO (08:27)
[2020-03-07] MEDS: LIDOCAINE 5% PATCH 2 PATCH TRANSDERM (09:43)
--- NOTE | 2020-03-07 09:53 | PC.NURSE ---
catheter removed, confused but oriented to persona and can follow commands, no pian, depends on patient for incontinence, did eat some for breakfast and took am meds in applesauce, sips of juice and soda taken
--- NOTE | 2020-03-07 10:36 | P.DS_ITS ---
DS: Admitting Diagnosis Admitting Diagnosis Admitting Diagnosis: Epilepsy, unspecified, not intractable, without status epilepticus DS: Discharge Diagnosis Discharge Diagnosis (1) Seizure disorder: Code(s): G40.909 - Epilepsy, unspecified, not intractable, without status epilepticus Status: Acute Assessment and Plan: * possibly secondary to missed dosed * continue lamotrigine * lamotrigine levels pending * troponin negative * will need to follow with primary care physician * primary care physician will have to request records to see the Lamictal level (2) Recurrent UTI: Code(s): N39.0 - Urinary tract infection, site not specified Status: Acute Assessment and Plan: * patient with history of UTI chronic * UA did indicate a trace of blood leukocyte esterase with white blood cells and bacteria * will treat patient for UTI and discontinue antibiotics if cultures negative * urine culture pending * started Bactrim b.i.d. for 4 days (3) Weakness: Code(s): R53.1 - Weakness Status: Acute Assessment and Plan: ? Exhibit tolerance during physical activity as evidenced by a normal fluctuation of vital signs during physical activity. ? Patient will be ability to perform required activities of daily living. ? Provide appropriate nutrition for healing and strength. ? Use appropriate to prevent falls. ? Continue physical therapy/occupational therapy. (4) Acute respiratory distress: Code(s): R06.03 - Acute respiratory distress Status: Acute Assessment and Plan: * Blood gas indicates Primary Metabolic Acidosis, with: Appropriately Compensated by Respiratory Alkalosis and Additional Metabolic Alkalosis. * possibly secondary to seizure * CTA and Doppler negative * oxygen p.r.n. ordered * vital signs was oxygen level as ordered (5) Lactic acid blood increased: Code(s): R79.89 - Other specified abnormal findings of blood chemistry Status: Acute Assessment and Plan: * possibly secondary to seizure activity or UTI. * lactic acid 6.5 * within normal limits (6) Elevated d-dimer: Code(s): R79.89 - Other specified abnormal findings of blood chemistry Status: Acute Assessment and Plan: * elevated D-dimer 1.31 * could be secondary to seizure * CTA and Doppler negative * PE and DVT ruled out (7) DMII (diabetes mellitus, type 2): Onset Date: Unknown Code(s): E11.9 - Type 2 diabetes mellitus without complications Status: Acute Assessment and Plan: * continue metformin * follow-up with PCP (8) Hyperlipidemia: Code(s): E78.5 - Hyperlipidemia, unspecified Status: Acute Assessment and Plan: * continue statins DS: Summary Time Spent with Patient Time attestation: Total time spent providing and/or coordinating discharge services:60 Exam Narrative: Exam Narrative: General: orientated to self only lethargic and confused, in bed no acute distress. HEENT: Normocephalic, atraumatic. PERRL, EOMI. Sclerae anicteric. Oral mucosa moist. Oropharynx clear. Neck: Supple. Respiratory: Lungs are clear to auscultation bilaterally. Cardiovascular: Regular rate and rhythm with S1-S2. Gastrointestinal: Abdomen is soft, nontender, and nondistended with positive bowel sounds. No organomegaly. Skin: Warm, dry, and slightly pale.. No rash or lesions on limited exam. Extremities: No cyanosis, clubbing, or edema. Radial and pedal pulses
--- NOTE | 2020-03-07 10:36 | PM.DS ---
DS: Admitting Diagnosis Admitting Diagnosis Admitting Diagnosis: Epilepsy, unspecified, not intractable, without status epilepticus DS: Discharge Diagnosis Discharge Diagnosis (1) Seizure disorder: Code(s): G40.909 - Epilepsy, unspecified, not intractable, without status epilepticus Status: Acute Assessment and Plan: possibly secondary to missed dosed continue lamotrigine lamotrigine levels pending troponin negative will need to follow with primary care physician primary care physician will have to request records to see the Lamictal level (2) Recurrent UTI: Code(s): N39.0 - Urinary tract infection, site not specified Status: Acute Assessment and Plan: patient with history of UTI chronic UA did indicate a trace of blood leukocyte esterase with white blood cells and bacteria will treat patient for UTI and discontinue antibiotics if cultures negative urine culture pending started Bactrim b.i.d. for 4 days (3) Weakness: Code(s): R53.1 - Weakness Status: Acute Assessment and Plan: ? Exhibit tolerance during physical activity as evidenced by a normal fluctuation of vital signs during physical activity. ? Patient will be ability to perform required activities of daily living. ? Provide appropriate nutrition for healing and strength. ? Use appropriate to prevent falls. ? Continue physical therapy/occupational therapy. (4) Acute respiratory distress: Code(s): R06.03 - Acute respiratory distress Status: Acute Assessment and Plan: Blood gas indicates Primary Metabolic Acidosis, with: Appropriately Compensated by Respiratory Alkalosis and Additional Metabolic Alkalosis. possibly secondary to seizure CTA and Doppler negative oxygen p.r.n. ordered vital signs was oxygen level as ordered (5) Lactic acid blood increased: Code(s): R79.89 - Other specified abnormal findings of blood chemistry Status: Acute Assessment and Plan: possibly secondary to seizure activity or UTI. lactic acid 6.5 within normal limits (6) Elevated d-dimer: Code(s): R79.89 - Other specified abnormal findings of blood chemistry Status: Acute Assessment and Plan: elevated D-dimer 1.31 could be secondary to seizure CTA and Doppler negative PE and DVT ruled out (7) DMII (diabetes mellitus, type 2): Onset Date: Unknown Code(s): E11.9 - Type 2 diabetes mellitus without complications Status: Acute Assessment and Plan: continue metformin follow-up with PCP (8) Hyperlipidemia: Code(s): E78.5 - Hyperlipidemia, unspecified Status: Acute Assessment and Plan: continue statins DS: Summary Time Spent with Patient Time attestation: Total time spent providing and/or coordinating discharge services:60 Exam Narrative: Exam Narrative: General: orientated to self only lethargic and confused, in bed no acute distress. HEENT: Normocephalic, atraumatic. PERRL, EOMI. Sclerae anicteric. Oral mucosa moist. Oropharynx clear. Neck: Supple. Respiratory: Lungs are clear to auscultation bilaterally. Cardiovascular: Regular rate and rhythm with S1-S2. Gastrointestinal: Abdomen is soft, nontender, and nondistended with positive bowel sounds. No organomegaly. Skin: Warm, dry, and slightly pale.. No rash or lesions on limited exam. Extremities: No cyanosis, clubbing, or edema. Radial and pedal pulses intact. Neurological: Cranial nerves 2-12 are grossly intact. No gross focal deficits to casual conversation. Psychiatric: lethargic and confused CONSTITUTIONAL :No weight loss, fever, chills, weakness or fatigue.: HEENT: Eyes: No diplopia or blurred vision. ENT: No earache, sore throat or runny nose. CARDIOVASCULAR: No pressure, squeezing, strangling, tightness, heaviness or aching about the chest, neck, axilla or epigastrium. RESPIRATORY: No co
--- NOTE | 2020-03-07 11:00 | PC.NURSE ---
report to group home, more alert with verbal stimulation, no sz activity since admit
--- NOTE | 2020-03-07 11:25 | PC.NURSE ---
Discharge to long-term, patient assisted with 2 person to wheel chair, able to support self and talking on discharge, oriented to self only,
[2020-03-14 11:06] LABS: Lamotrigine Lamictal 3.4 mcg/mL (4.0-18.0)
== END 2020-03-07 11:25 ==
LOC: CHSED 07:39 → CHS2ND 08:56
PROVIDERS: Nurse Practitioner; Admitting Provider Family Medicine; Emergency Provider Family Medicine; PCP Family Medicine; Visit Provider Family Medicine
DX: G40.909 Epilepsy, unspecified, not intractable, without status epilepticus (principal); I48.20 Chronic atrial fibrillation, unspecified; F03.90 Unspecified dementia, unspecified severity, without behavioral disturbance, psychotic disturbance, mood disturbance, and anxiety; E11.9 Type 2 diabetes mellitus without complications; I10 Essential (primary) hypertension; E78.5 Hyperlipidemia, unspecified; R53.1 Weakness; N39.0 Urinary tract infection, site not specified; R79.89 Other specified abnormal findings of blood chemistry
CPT/HCPCS: 36415; 36600; 70450; 71045; 71275; 80053; 80175; 80307; 81001; 82140; 82805; 83605; 83880; 84484; 85025; 85027; 85380; 85610; 87086; 93005; 93970; 96361; 96365; 96372; 96375; 96376; 99283; 99285; A9270; G0378; J0696; J1650; J1953; J2060; J7040; Q9965

== ENCOUNTER 2020-06-11 06:18 | Outpatient (NON) | payer MEDICARE, SELFPAY ==
[2020-06-11 20:06] LABS: Appearance Urine Sl Cloudy (Clear); Bilirubin Urine Negative (Negative); Color Urine Yellow (Yellow); Glucose Urine UA Negative (Negative); Ketones Urine Negative (Negative); Leukocyte Esterase Ur 3+ (Negative); Nitrate Urine Negative (Negative); Protein Urine Negative (Negative); Urobilinogen Urine 0.2 mg/dL (0.2-1.0); pH Urine 6.5 (5.0-8.0)
[2020-06-11 20:11] LABS: Add Urine Microscopic? YES; Bacteria Urine 1+ /hpf; Blood Urine Trace (Negative); WBC Urine >75 /hpf (0-3)
[2020-06-14 20:56] LABS: Lamotrigine Lamictal 5.3 mcg/mL (4.0-18.0)
== END 2020-06-11 06:19 ==
PROVIDERS: Nurse Practitioner Family; Visit Provider Family Medicine
DX: N39.0 Urinary tract infection, site not specified (principal); Z79.899 Other long term (current) drug therapy
CPT/HCPCS: 36415; 80175; 81001; 87077; 87086; 87088; 87186

== ENCOUNTER 2020-08-07 11:52 | Emergency (ER) | payer MEDICARE, SELFPAY ==
--- NOTE | ~2020-08-07 | XR_ITS ---
EXAMINATION: XR chest 2V DATE: 08/07/2020 12:52 INDICATION: Altered mental status. TECHNIQUE: Frontal and lateral views of the chest were obtained. COMPARISON: Chest one view 03/06/2020, chest CT 03/06/2020 FINDINGS: There is mild atelectasis in right midlung zone. No pleural effusion or pneumothorax. The h eart size is normal. Calcified mediastinal lymph nodes are consistent with old granulomatous disease. IMPRESSION: 1. Mild atelectasis in right midlung zone. Reviewed, dictated and finalized at location A. R RESOURCE MANAGER
--- NOTE | ~2020-08-07 | CT_ITS ---
EXAMINATION: CT brain wo con DATE: 08/07/2020 12:52 INDICATION: Slurred speech. TECHNIQUE: Computed tomography (CT) of the head was performed without intravenous contrast. The dose- length product was 605.33 mGy-cm. Automated exposure control and iterative reconstruction technique w ere employed. COMPARISON: CT dated 03/06/2020 FINDINGS: Generalized atrophy. There are scattered moderate periventricular and subcortical white mat ter changes, most likely related to small vessel ischemic disease (microangiopathy). No ventriculomeg jemal or midline shift. Basilar cisterns are patent. Mucosal thickening of the ethmoid air cells. Masto ids are pneumatized. No depressed skull fractures. There is intracranial atherosclerosis. 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 No significant mass effect. IMPRESSION: 1. No acute intracranial abnormality. 2: Chronic age-related findings. Reviewed, dictated and finalized at location A. ER HELPER
--- NOTE | 2020-08-07 11:58 | ECG_ITS ---
Measurements Intervals [place] Rate: 95 P: IA: 0 QRS: 79 QRSD: 106 T: -7 QT: 371 QTc: 467 Interpretive Statements ATRIAL FIBRILLATION INCOMPLETE RIGHT BUNDLE BRANCH BLOCK CONSIDER INFERIOR INFARCT, AGE INDETERMINATE ABNORMAL ECG Electronically Signed On 08-07-2020 13:01:06 MANAGER OF LEARNING by Pradeep Mercado D.O.
[2020-08-07 12:25] VITALS: BP 132/76; PULSE 87; RESP 16; TEMP 36.4; O2SAT 100
[2020-08-07 12:26] LABS: Basophils Absolute Auto 0.04 K/mm3 (0.00-0.10); Basophils Percent Auto 0.4 % (0.0-1.0); Eosinophils Percent Auto 0.9 % (1.0-6.0); Hematocrit 44.2 % (37.0-46.0); Hemoglobin 15.2 g/dL (12.4-15.3); Immature Granulocyte Absolute 0.09 K/mm3 (0.00-0.00); Immature Granulocyte Percent A 0.8 % (0.0-0.0); Lymphocytes Absolute Auto 1.76 K/mm3 (1.10-4.50); Lymphocytes Percent Auto 16.3 % (18.0-42.0); Mean Corpuscular HGB Conc 34.4 g/dL (32.0-36.0); Mean Corpuscular Volume 84.4 fL (78.0-102.0); Mean Platelet Volume 9.3 fl (8.7-11.0); Monocytes Absolute Auto 0.83 K/mm3 (0.10-0.90); Monocytes Percent Auto 7.7 % (2.0-11.0); Neutrophils Percent Auto 73.9 % (50.0-70.0); Platelet Count Result 438 K/mm3 (150-420); Red Blood Count 5.24 M/mm3 (4.70-6.10); Red Cell Distribution Width 13.1 % (11.6-14.4); White Blood Count 10.8 K/mm3 (4.8-10.8)
[2020-08-07 12:40] LABS: INR 1.1; Partial Thromboplastin Time 34.2 SEC (23.90-30.70); Prothrombin Time 12.2 Seconds (9.50-12.10)
[2020-08-07 13:09] LABS: Acetaminophen 4 ug/mL (10-30); Alanine Aminotransferase 29 U/L (16-63); Albumin Level 3.5 g/dL (3.4-5.0); Alkaline Phosphatase 79 U/L (46-116); Anion Gap 9 mmol/L (8-16); Aspartate Amino Transferase 29 U/L (15-37); Bilirubin,Total 1.5 mg/dL (0.00-1.00); Blood Urea Nitrogen 24 mg/dL (7-18); Carbon Dioxide 26 mmol/L (21-32); Chloride 98 mmol/L (98-108); Creatine Kinase 252 U/L (39-308); Estimated Glomerular Filt Rate 48; Glucose 122 mg/dL (70-99); Osmolality Calculated 281 mOsm/kg (285-295); Potassium 3.7 mmol/L (3.5-5.1); Salicylate 0.3 mg/dL (2.8-20.0); Sodium 133 mmol/L (136-145); Thyroid Stimulating Hormone 0.25 uIU/mL (0.36-3.74); Total Protein 7.8 g/dL (6.4-8.2)
[2020-08-07 13:16] LABS: Ammonia < 10 umol/L (11-32); Ethanol < 3 mg/dL (0-6)
--- NOTE | 2020-08-07 13:31 | ED.NEUROSD ---
HPI - Neuro Symptoms/Deficit General Chief Complaint: Neuro Symptoms/Deficit Stated Complaint: 85 YO male sent to ER from for evaluation of possible seizure earlier today. Patient w/ prior h/o seizure disorder who is not on any meds for seizures as he hasn't had any for a long time here for eval. Comes in awake, alert, speaking full sentances. States he doesn't known why he is in ER. Related Data Home Medications Medication Instructions Recorded Confirmed cranberry 450 mg PO TID 08/30/19 03/06/20 fluticasone propionate [Allergy 1 spray NASAL DAILY PRN 08/30/19 03/06/20 Relief (fluticasone)] magnesium hydroxide [Milk Of 30 ml PO DAILY PRN 08/30/19 03/06/20 Magnesia Concentrated] Allergies Allergy/AdvReac Type Severity Reaction Status Date / Time morphine Allergy Intermediate Unknown Verified 05/19/20 08:44 nitrofurantoin Allergy Unknown Verified 05/19/20 08:44 Review of Systems Review of Systems: All systems reviewed & are unremarkable except as noted in HPI and below Constitutional: Constitutional: Reports no additional constitutional complaints Eyes: Eyes: Reports no additional eye complaints ENT: Reports system reviewed and no additional complaints, except as documented Cardiovascular: Cardiovascular: Reports no additional cardiovascular complaints Respiratory: Respiratory: Reports no additional respiratory complaints Gastrointestinal: Gastrointestinal: Reports no additional gastrointestinal complaints Genitourinary: Genitourinary: Reports no additional male genitourinary complaints Musculoskeletal: Musculoskeletal: Reports no additional musculoskeletal complaints Integumentary/Breasts: Skin/Breast: Reports system reviewed and no additional complaints, except as docu Neurologic: Reports system reviewed and no additional complaints, except as documented Psychiatric: Psychiatric: Reports no additional psychiatric complaints Endocrine: Endocrine: Reports no additional endocrine complaints Hematologic/Lymphatic: Hematologic/Lymphatic: Reports no additional hematologic/lymphatic complaints Allergic/Immunologic: Allergic/Immunologic: Reports no additional allergic/immunologic complaints [facility] Past Medical History Medical History (Updated 08/07/20 @ 13:43 by Mandeep Murillo MD) Acute respiratory distress Acute UTI AMS (altered mental status) (~06/26/19) Atrial fibrillation (Unknown) Chronic back pain greater than 3 months duration (Unknown) Dementia Dementia Diabetes mellitus DMII (diabetes mellitus, type 2) (Unknown) Elevated d-dimer HTN (hypertension) Hyperlipidemia Left cuboid fracture Recurrent UTI Seizure disorder URI (upper respiratory infection) Weakness Surgical History Surgical History H/O umbilical hernia repair History of back surgery Family History Family History Mother Family history of type 2 diabetes mellitus Father Alcoholism Social History Social History Smoking status: Former smoker Tobacco type: cigarettes Second hand tobacco smoke exposure: No Smoking end date: 08/21/98 Alcohol intake: unknown Substance use: unknown Substance use type: does not use Additional living arrangements comments: 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 Gender identity (if verbalized by the patient): Male Spiritual care concerns: No Agree to blood products: Yes Exam Const: General: healthy appearing, no acute distress and alert Nutritional Appearance: well nourished Orientation/consciousness: patient oriented x3 Limitations: no limitations HENMT: Head: normal to inspection Eyes: Conjunctivae: conjunctivae normal Pupils: Equal, round and reactive pupils present Neck: Neck: normal visual inspection and no lymphadenopathy Chest: C
[2020-08-07 14:01] LABS: Add Urine Microscopic? YES; Appearance Urine Clear (Clear); Bilirubin Urine 1+ (Negative); Blood Urine 3+ (Negative); Color Urine Yellow (Yellow); Glucose Urine UA Negative (Negative); Ketones Urine Trace (Negative); Leukocyte Esterase Ur Negative LEU/UL (Negative); Nitrate Urine Negative (Negative); Protein Urine Negative (Negative); Specific Grav Ur >= 1.030 (1.010-1.020); pH Urine 5.5 (5.0-8.0)
[2020-08-07 14:09] LABS: Amphetamine Screen Urine Negative (Negative); Barbiturate Screen Urine Negative (Negative); Benzodiazepines Screen Urine Negative (Negative); Cannabinoid Screen Urine Negative (Negative); Cocaine Screen Urine Negative (Negative); Methadone Screen Urine Negative (Negative); Opiate Screen Urine Negative (Negative); Phencyclidine Screen Urine Negative (Negative)
[2020-08-07 14:10] LABS: Bacteria Urine Trace /hpf; RBC Urine >75 /hpf (0-2); WBC Urine 0-3 /hpf (0-3)
[2020-08-07 14:32] VITALS: BP 124/67
[2020-08-10 13:53] LABS: Prolactin 9.5 ng/mL (***)
== END 2020-08-07 14:33 ==
PROVIDERS: Emergency Provider Family Medicine; PCP Family Medicine
DX: G40.909 Epilepsy, unspecified, not intractable, without status epilepticus (principal); R53.1 Weakness; Z79.899 Other long term (current) drug therapy; I48.91 Unspecified atrial fibrillation; E11.9 Type 2 diabetes mellitus without complications; I10 Essential (primary) hypertension; E78.5 Hyperlipidemia, unspecified; Z87.891 Personal history of nicotine dependence
CPT/HCPCS: 36415; 70450; 71046; 80053; 80307; 81001; 82140; 82550; 84146; 84443; 84484; 85025; 85610; 85730; 93005; 99283; 99284

== ENCOUNTER 2020-08-12 14:05 | Outpatient (CLI) | payer MEDICARE, SELFPAY ==
--- NOTE | ~2020-08-12 | CT_ITS ---
EXAMINATION: CT brain wo con EXAM DATE: 08/12/2020 14:58 INDICATION: Seizure disorder, pt confused . TECHNIQUE: Spiral CT of the head was performed without contrast. Axial, coronal and sagittal images were reviewed. The dose-length product (DLP) for this examination was 529.67 mGy-cm. The exposure w as tailored according to patient size, and iterative reconstruction (ASIR) was used as additional dos e reduction technique. Comparison is made to prior examination from 08/07/2020. FINDINGS: There is no acute intraparenchymal hemorrhage. No evidence of intraparenchymal brain mass lesion. No evidence of acute infarction. Please note that initial head CT has limited sensitivity f or small or acute infarctions. 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 There is moderate perivent ricular and subcortical hypodensity, nonspecific but probably related to small vessel ischemic diseas e. There is moderate prominence of the sulci and ventricles related to cerebral atrophy. There is intracranial carotid arteriosclerosis. There are no extra-axial collections. There is no mass effe ct or midline shift. The orbits are unremarkable. Soft tissue is unremarkable. The visualized sinu ses and mastoid air cells are well aerated. IMPRESSION: 1. 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 2. Chronic age related findings. Reviewed, dictated and finalized at location B. ET ORGANIZER
[2020-08-12 14:21] LABS: Basophils Absolute Auto 0.03 K/mm3 (0.00-0.10); Basophils Percent Auto 0.3 % (0.0-1.0); Eosinophils Absolute Auto 0.08 K/mm3 (0.02-0.50); Eosinophils Percent Auto 0.8 % (1.0-6.0); Hematocrit 44.9 % (37.0-46.0); Hemoglobin 14.9 g/dL (12.4-15.3); Immature Granulocyte Absolute 0.07 K/mm3 (0.00-0.00); Immature Granulocyte Percent A 0.7 % (0.0-0.0); Lymphocytes Absolute Auto 2.22 K/mm3 (1.10-4.50); Lymphocytes Percent Auto 21.4 % (18.0-42.0); Mean Corpuscular HGB Conc 33.2 g/dL (32.0-36.0); Mean Corpuscular Hemoglobin 28.5 pg (27.0-31.0); Mean Corpuscular Volume 85.9 fL (78.0-102.0); Mean Platelet Volume 9.2 fl (8.7-11.0); Monocytes Absolute Auto 0.67 K/mm3 (0.10-0.90); Monocytes Percent Auto 6.5 % (2.0-11.0); Neutrophils Absolute Auto 7.3 K/mm3 (1.7-7.2); Neutrophils Percent Auto 70.3 % (50.0-70.0); Platelet Count Result 341 K/mm3 (150-420); Red Blood Count 5.23 M/mm3 (4.70-6.10); Red Cell Distribution Width 13.6 % (11.6-14.4); White Blood Count 10.4 K/mm3 (4.8-10.8)
[2020-08-12 14:58] LABS: Alanine Aminotransferase 25 U/L (16-63); Albumin Level 3.6 g/dL (3.4-5.0); Alkaline Phosphatase 96 U/L (46-116); Anion Gap 7 mmol/L (8-16); Aspartate Amino Transferase 20 U/L (15-37); Bilirubin,Total 0.8 mg/dL (0.00-1.00); Blood Urea Nitrogen 11 mg/dL (7-18); Calcium 8.9 mg/dL (8.5-10.1); Carbon Dioxide 30 mmol/L (21-32); Chloride 102 mmol/L (98-108); Estimated Glomerular Filt Rate > 60; Glucose 142 mg/dL (70-99); Osmolality Calculated 289 mOsm/kg (285-295); Potassium 4.3 mmol/L (3.5-5.1); Sodium 139 mmol/L (136-145)
[2020-08-15 08:21] LABS: Lamotrigine Lamictal 6.9 mcg/mL (4.0-18.0)
== END 2020-08-12 14:06 | disposition home or self-care (01) ==
LOC: CHSLAB 14:08
PROVIDERS: PCP Family Medicine; Visit Provider Family Medicine
DX: D64.9 Anemia, unspecified (principal); Z79.899 Other long term (current) drug therapy; G40.909 Epilepsy, unspecified, not intractable, without status epilepticus; R26.9 Unspecified abnormalities of gait and mobility
CPT/HCPCS: 36415; 70450; 80053; 80175; 85025

== ENCOUNTER 2020-08-13 06:12 | Outpatient (NON) | payer MEDICARE, SELFPAY ==
[2020-08-13 06:34] LABS: Add Urine Microscopic? YES; Appearance Urine Clear (Clear); Bilirubin Urine Negative (Negative); Blood Urine Negative (Negative); Color Urine Yellow (Yellow); Glucose Urine UA Negative (Negative); Ketones Urine Negative (Negative); Leukocyte Esterase Ur Negative (Negative); Nitrate Urine Positive (Negative); Protein Urine Negative (Negative); pH Urine 6.5 (5.0-8.0)
[2020-08-13 06:44] LABS: RBC Urine 0-2 /hpf (0-2); WBC Urine 0-3 /hpf (0-3)
[2020-08-13 06:45] LABS: Bacteria Urine Trace /hpf
== END 2020-08-13 06:13 ==
LOC: CHSLAB 06:13
PROVIDERS: Visit Provider Family Medicine
DX: R41.82 Altered mental status, unspecified (principal); R26.9 Unspecified abnormalities of gait and mobility
CPT/HCPCS: 81001; 87086; 87088

== ENCOUNTER 2020-09-03 10:37 | Outpatient (NON) | payer MEDICARE, SELFPAY ==
[2020-09-03 10:44] LABS: Basophils Absolute Auto 0.04 K/mm3 (0.00-0.10); Basophils Percent Auto 0.4 % (0.0-1.0); Eosinophils Absolute Auto 0.15 K/mm3 (0.02-0.50); Eosinophils Percent Auto 1.3 % (1.0-6.0); Hematocrit 45.5 % (37.0-46.0); Immature Granulocyte Absolute 0.05 K/mm3 (0.00-0.00); Immature Granulocyte Percent A 0.4 % (0.0-0.0); Lymphocytes Absolute Auto 1.85 K/mm3 (1.10-4.50); Lymphocytes Percent Auto 16.6 % (18.0-42.0); Mean Corpuscular Hemoglobin 29.8 pg (27.0-31.0); Mean Corpuscular Volume 90.3 fL (78.0-102.0); Mean Platelet Volume 9.4 fl (8.7-11.0); Monocytes Absolute Auto 1.23 K/mm3 (0.10-0.90); Monocytes Percent Auto 11.1 % (2.0-11.0); Neutrophils Absolute Auto 7.8 K/mm3 (1.7-7.2); Neutrophils Percent Auto 70.2 % (50.0-70.0); Platelet Count Result 219 K/mm3 (150-420); Red Blood Count 5.04 M/mm3 (4.70-6.10); Red Cell Distribution Width 16.1 % (11.6-14.4); White Blood Count 11.1 K/mm3 (4.8-10.8)
[2020-09-03 11:10] LABS: Alanine Aminotransferase 22 U/L (16-63); Albumin Level 3.9 g/dL (3.4-5.0); Alkaline Phosphatase 96 U/L (46-116); Anion Gap 8 mmol/L (8-16); Aspartate Amino Transferase 17 U/L (15-37); Bilirubin,Total 1.7 mg/dL (0.00-1.00); Blood Urea Nitrogen 11 mg/dL (7-18); Calcium 8.6 mg/dL (8.5-10.1); Carbon Dioxide 31 mmol/L (21-32); Chloride 100 mmol/L (98-108); Estimated Glomerular Filt Rate > 60; Glucose 91 mg/dL (70-99); Osmolality Calculated 287 mOsm/kg (285-295); Sodium 139 mmol/L (136-145); Total Protein 6.9 g/dL (6.4-8.2)
[2020-09-03 14:43] LABS: Add Urine Microscopic? YES; Appearance Urine Clear (Clear); Bilirubin Urine Negative (Negative); Blood Urine Negative (Negative); Color Urine Yellow (Yellow); Glucose Urine UA Negative (Negative); Ketones Urine Negative (Negative); Leukocyte Esterase Ur Trace LEU/UL (Negative); Nitrate Urine Negative (Negative); Protein Urine Negative (Negative)
[2020-09-03 15:11] LABS: RBC Urine 0-2 /hpf (0-2); WBC Urine 0-3 /hpf (0-3)
[2020-09-03 15:12] LABS: Bacteria Urine Trace /hpf; Squamous Epithelial Cell Urine None seen /hpf (Few)
== END 2020-09-03 10:38 ==
LOC: CHSLAB 10:39
PROVIDERS: Visit Provider Family Medicine
DX: R41.82 Altered mental status, unspecified (principal)
CPT/HCPCS: 36415; 80053; 81001; 85025

== ENCOUNTER 2020-09-30 06:11 | Outpatient (NON) | payer MEDICARE, SELFPAY ==
[2020-09-30 06:32] LABS: Hematocrit 45.2 % (37.0-46.0); Hemoglobin 15.4 g/dL (12.4-15.3); Mean Corpuscular HGB Conc 34.1 g/dL (32.0-36.0); Mean Corpuscular Volume 88.1 fL (78.0-102.0); Mean Platelet Volume 9.3 fl (8.7-11.0); Platelet Count Result 276 K/mm3 (150-420); Red Blood Count 5.13 M/mm3 (4.70-6.10); Red Cell Distribution Width 14.6 % (11.6-14.4); White Blood Count 10.5 K/mm3 (4.8-10.8)
[2020-09-30 06:44] LABS: Alanine Aminotransferase 21 U/L (16-63); Albumin Level 3.4 g/dL (3.4-5.0); Alkaline Phosphatase 92 U/L (46-116); Anion Gap 9 mmol/L (8-16); Aspartate Amino Transferase 18 U/L (15-37); Bilirubin,Total 1.2 mg/dL (0.00-1.00); Blood Urea Nitrogen 10 mg/dL (7-18); Calcium 8.8 mg/dL (8.5-10.1); Carbon Dioxide 31 mmol/L (21-32); Chloride 101 mmol/L (98-108); Estimated Glomerular Filt Rate > 60; Glucose 123 mg/dL (70-99); Osmolality Calculated 292 mOsm/kg (285-295); Potassium 4.4 mmol/L (3.5-5.1); Sodium 141 mmol/L (136-145); Total Protein 6.2 g/dL (6.4-8.2)
[2020-10-03 05:43] LABS: Lamotrigine Lamictal 3.2 mcg/mL (4.0-18.0)
== END 2020-09-30 06:12 ==
LOC: CHSLAB 06:13
PROVIDERS: Visit Provider Family Medicine
DX: G40.909 Epilepsy, unspecified, not intractable, without status epilepticus (principal)
CPT/HCPCS: 36415; 80053; 80175; 85027

== ENCOUNTER 2020-11-02 19:25 | Inpatient (IN) | payer MEDICARE, SELFPAY ==
--- NOTE | ~2020-11-02 | XR_ITS ---
XR chest 1V portable DATE: 11/02/2020 20:16 INDICATION: Fever TECHNIQUE: Portable AP chest on 2020 at 1955 hours COMPARISON: 08/07/2020 view chest FINDINGS: There is patchy infiltrate throughout the right lung field and at the right lung base; give n history of fever, consider pneumonia. Heart size is likely normal. No pleural effusion or pneumothorax. Degenerative spurring of the thoracic spine. IMPRESSION: Diffuse right lung and left basilar pulmonary infiltrates Reviewed, dictated and finalized at location A.
--- NOTE | ~2020-11-02 | CT_ITS ---
EXAMINATION: CT brain wo con DATE: 11/02/2020 20:15 INDICATION: Seizure. Confusion. Transient alteration of awareness. TECHNIQUE: Computed tomography (CT) of the head was performed without intravenous contrast. The mA wa s adjusted according to patient size. Iterative reconstruction technique was employed. Exam dose: 60 3.55 mGy-cm total exam DLP. COMPARISON: . 08/12/2020 CT brain FINDINGS: There is nonspecific diminished attenuation of the cerebral white matter, likely due to chr onic small vessel ischemic changes. Vertebral and internal carotid artery intracranial calcifications are noted. No intracranial mass lesion or hemorrhage or recent cerebrovascular accident is evident. No midline s hift or mass effect effect. No subdural or epidural hematoma is detected. No fracture or bone destruction of the cranial vault. There is some focal opacification of left ethmoid air cells. Included paranasal sinuses and mastoid a ir cells otherwise appear unremarkable. IMPRESSION: Cerebral atherosclerosis and chronic small vessel ischemic changes of the cerebral white matter No acute intracranial finding or skull fracture Reviewed, dictated and finalized at Location A. Reviewed, dictated and finalized at location A.
[2020-11-02 19:21] VITALS: BP 141/63; PULSE 106; RESP 18; TEMP 37.9; O2SAT 93
--- NOTE | 2020-11-02 19:34 | ED.SEIZURE ---
HPI - Seizure General Chief Complaint: Altered Mental Status Stated Complaint: AMB Time Seen by Provider: 11/02/20 19:34 Source: patient, EMS and RN notes reviewed Mode of arrival: ambulatory Limitations: no limitations History of Present Illness HPI Narrative: Patient comes from jail. Apparently had seizures today. His primary care physician was they are making rounds and saw the patient have a seizure this morning. He reportedly had 2 more seizures with these were unwitnessed sore not able to know how he had 2 more seizures. He has a history of seizure disorder and chronic dementia. Also has had a CVA in the past. complaint: seizure Onset (ago): hour(s) (10) Description of Episode: tonic-clonic movement Witnessed: Yes - by Other Trauma: No Seizure History: Yes Place: home Possible Precipitating Event: none Associated symptoms: denies other symptoms Treatments prior to arrival: none Related Data Home Medications Medication Instructions Recorded Confirmed cranberry 450 mg PO TID 08/30/19 11/02/20 fluticasone propionate [Allergy 1 spray NASAL DAILY PRN 08/30/19 11/02/20 Relief (fluticasone)] magnesium hydroxide [Milk Of 30 ml PO DAILY PRN 08/30/19 11/02/20 Magnesia Concentrated] aspirin 81 mg tablet,delayed 81 mg PO DAILY 08/12/20 11/02/20 release atorvastatin 40 mg tablet 40 mg PO DAILY 08/12/20 11/02/20 acetaminophen 500 mg tablet 500 mg PO Q6H PRN 10/15/20 11/02/20 hydrocodone 5 mg-acetaminophen 325 1 tablet PO TID PRN tablet 10/15/20 11/02/20 mg tablet lamotrigine 150 mg tablet 150 mg PO BID 10/15/20 11/02/20 lidocaine 4 % topical patch 1 patch TOPICAL DAILY PRN 10/15/20 11/02/20 Allergies Allergy/AdvReac Type Severity Reaction Status Date / Time morphine Allergy Intermediate Unknown Verified 10/15/20 09:22 nitrofurantoin Allergy Unknown Verified 10/15/20 09:22 Review of Systems Review of Systems: ROS unobtainable: Yes unobtainable due to mental status ( Dementia with a history of dysphagia) PMFSH Past Medical History Medical History (Updated 11/02/20 @ 21:02 by Kal Constantino MD) Acute respiratory distress Acute UTI AMS (altered mental status) (~06/26/19) Atrial fibrillation (Unknown) Chronic back pain greater than 3 months duration (Unknown) Dementia Dementia Diabetes mellitus DMII (diabetes mellitus, type 2) (Unknown) Elevated d-dimer History of CVA (cerebrovascular accident) HTN (hypertension) Hyperlipidemia Left cuboid fracture Recurrent UTI Seizure disorder URI (upper respiratory infection) Weakness Surgical History Surgical History H/O umbilical hernia repair History of back surgery Family History Family History Mother Family history of type 2 diabetes mellitus Father Alcoholism Social History Social History Smoking status: Former smoker Tobacco type: cigarettes Second hand tobacco smoke exposure: No Smoking end date: 08/21/98 Alcohol intake: unknown Substance use: unknown Substance use type: does not use Additional living arrangements comments: 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 Gender identity (if verbalized by the patient): Male Spiritual care concerns: No Agree to blood products: Yes Exam Const: General: no acute distress and alert HENMT: Head: normal to inspection Ears: external ears normal General nose exam: Normal external nose present Face and sinus: normal facial exam Mouth: Yes Normal oral and palatal mucosa present Eyes: Conjunctivae: conjunctivae normal Pupils: Equal, round and reactive pupils present EOM: EOMs intact bilaterally Neck: Neck: normal visual inspection Resp: Effort & Inspection: normal respiratory effort Auscultation: crackles on the right at the base Cardio: Rate: regular ra
[2020-11-02 20:18] LABS: Hematocrit 42.5 % (37.0-46.0); Hemoglobin 14.4 g/dL (12.4-15.3); Mean Corpuscular HGB Conc 33.9 g/dL (32.0-36.0); Mean Corpuscular Hemoglobin 29.5 pg (27.0-31.0); Mean Corpuscular Volume 87.1 fL (78.0-102.0); Mean Platelet Volume 9.1 fl (8.7-11.0); Platelet Count Result 294 K/mm3 (150-420); Red Blood Count 4.88 M/mm3 (4.70-6.10); Red Cell Distribution Width 13.8 % (11.6-14.4)
[2020-11-02 20:21] LABS: White Blood Count 25.8 K/mm3 (4.8-10.8)
[2020-11-02 20:24] VITALS: BP 149/51; PULSE 110; RESP 20; TEMP 37.9; O2SAT 95
[2020-11-02 20:27] LABS: Appearance Urine Clear (Clear); Bilirubin Urine Negative (Negative); Color Urine Yellow (Yellow); Glucose Urine UA Negative (Negative); Ketones Urine Negative (Negative); Leukocyte Esterase Ur Trace LEU/UL (Negative); Nitrate Urine Negative (Negative); Protein Urine Trace (Negative); Urobilinogen Urine 0.2 mg/dL (0.2-1.0); pH Urine 6.5 (5.0-8.0)
[2020-11-02 20:33] LABS: Alanine Aminotransferase 29 U/L (16-63); Albumin Level 3.4 g/dL (3.4-5.0); Alkaline Phosphatase 79 U/L (46-116); Anion Gap 11 mmol/L (8-16); Aspartate Amino Transferase 32 U/L (15-37); Blood Urea Nitrogen 19 mg/dL (7-18); Calcium 8.8 mg/dL (8.5-10.1); Carbon Dioxide 26 mmol/L (21-32); Chloride 100 mmol/L (98-108); Estimated CRCL calculation 36 ml/min; Estimated Glomerular Filt Rate 59; Glucose 212 mg/dL (70-99); Osmolality Calculated 292 mOsm/kg (285-295); Potassium 4.1 mmol/L (3.5-5.1); Sodium 137 mmol/L (136-145); Total Protein 6.8 g/dL (6.4-8.2)
[2020-11-02 20:36] LABS: Add Urine Microscopic? YES; Blood Urine Trace (Negative)
[2020-11-02 20:37] LABS: Bacteria Urine Trace /hpf
[2020-11-02 20:38] LABS: Band Neutrophils Percent 3 % (0-6); Basophils Percent Manual 0 % (0-1); Eosinophils Percent Manual 0 % (1-6); Lactic Acid Reflex 1.9 mmol/L (0.4-2.0); Lymphocytes Absolute Manual 1.29 K/mm3 (1.1-4.5); Lymphocytes Percent Manual 5 % (18-44); Monocytes Percent Manual 7 % (3-9); Neutrophils Percent Manual 85 % (46-73); Platelet Estimate Adequate (Adequate); Total Cells Counted 100
--- NOTE | 2020-11-02 20:56 | PC.NURSE ---
judy at [facility] notified of pt admission, kenisha Tovar also notified of admission.
[2020-11-02 20:59] VITALS: BP 130/54; PULSE 106; RESP 18; TEMP 37.7; O2SAT 95
[2020-11-02] MEDS: levETIRAcetam 500MG/NACL 100ML 500 MG/100 ML BAG 400 MG IVPB (21:09)
[2020-11-02 21:45] VITALS: BP 128/52; PULSE 104; RESP 20; TEMP 37.3; O2SAT 94
[2020-11-02] MEDS: SODIUM CHLORIDE 0.9% IV 1,000 ML 100 ML IV CONT (21:51)
[2020-11-02] MEDS: lamoTRIgine 100 MG TABLET PO (22:27)
[2020-11-02] MEDS: lamoTRIgine 25 MG TABLET 50 MG PO (22:27)
[2020-11-02] MEDS: MELATONIN 3 MG TABLET PO (22:28)
--- NOTE | 2020-11-02 22:45 | PC.NURSE ---
Attempted to give patient his melatonin and lamictal. Crushed meds and put in small amount of applesauce. After asking patient several times to open his mouth, he did. Patient got very little of the pills due to spitting it out and most of it stayed in his moustache. Patient restless and keeps turning back and forth from bath to right side then back to his right side. Patient pulls @ his vernon or his IV tubing or he lays on the tubing as he rolls over. Patient doesn't answer when spoken to.
--- NOTE | 2020-11-02 23:24 | ADMGEN ---
This patient, Ernst Hinojosa, was admitted to 2nd Floor Room 207-2. Patient oriented to hospital policies and general routines including ID bracelet, bed and alarms, visiting hours, pain management, procedures, bathroom and other care routines, personal items, smoking policy, room service/diet, and visiting hours. Patient unable to comprehend and is non-vocal. Information on how to activate the Rapid Response Team has been discussed. Patient are encouraged to report perceived risks to care and to ask questions if they do not understand what they are told or what they should do.
[2020-11-02 23:29] VITALS: BMI 26.1
[2020-11-02 23:51] VITALS: BP 108/56; PULSE 90; RESP 20; TEMP 37.5; O2SAT 96
[2020-11-02 23:56] VITALS: BP 101/52; PULSE 100; RESP 20; TEMP 37.4; O2SAT 95
--- NOTE | 2020-11-03 00:15 | PC.NURSE ---
Patient continues to be restless. Pulling on the blankets and turning back and forth. Attempts to help patient get comfortable have failed. He just ends up doing the same thing, turning back and forth, back to right side.
--- NOTE | 2020-11-03 01:15 | PC.NURSE ---
Patient continues turning back and forth. He is no longer pulling on IV tubing or vernon, now it's just the blankets. Spoke with charge nurse and she notified Dr Constantino who gave order for Ativan 1mg IV x1.
[2020-11-03] MEDS: LORazepam INJ (*CRX) 2 MG/ML VIAL 1 MG IV PUSH (01:22)
--- NOTE | 2020-11-03 02:30 | PC.NURSE ---
Patient resting quietly. No distress noted.
--- NOTE | 2020-11-03 03:45 | PC.NURSE ---
Patient continues to rest quietly with no distress noted.
--- NOTE | 2020-11-03 04:10 | PC.NURSE ---
Patient resting quietly. IVF infusing to site in left hand without difficulty. Meyer catheter patent and draining hema urine. No distress noted. Call light in reach.
--- NOTE | 2020-11-03 05:35 | PC.NURSE ---
Patient resting quietly. Labs drawn per tech. No distress noted. Meyer catheter patent and draining clear hema urine. IVF continue to infuse to site in left hand without difficulty. Call light in reach.
[2020-11-03 05:37] LABS: Basophils Absolute Auto 0.04 K/mm3 (0.00-0.10); Basophils Percent Auto 0.2 % (0.0-1.0); Eosinophils Absolute Auto 0.02 K/mm3 (0.02-0.50); Eosinophils Percent Auto 0.1 % (1.0-6.0); Hemoglobin 12.6 g/dL (12.4-15.3); Immature Granulocyte Absolute 0.09 K/mm3 (0.00-0.00); Immature Granulocyte Percent A 0.5 % (0.0-0.0); Lymphocytes Absolute Auto 1.82 K/mm3 (1.10-4.50); Lymphocytes Percent Auto 9.5 % (18.0-42.0); Mean Corpuscular HGB Conc 34.1 g/dL (32.0-36.0); Mean Corpuscular Hemoglobin 29.9 pg (27.0-31.0); Mean Corpuscular Volume 87.7 fL (78.0-102.0); Mean Platelet Volume 9.2 fl (8.7-11.0); Monocytes Absolute Auto 1.91 K/mm3 (0.10-0.90); Neutrophils Absolute Auto 15.3 K/mm3 (1.7-7.2); Neutrophils Percent Auto 79.7 % (50.0-70.0); Platelet Count Result 256 K/mm3 (150-420); Red Blood Count 4.22 M/mm3 (4.70-6.10); Red Cell Distribution Width 14.2 % (11.6-14.4); White Blood Count 19.1 K/mm3 (4.8-10.8)
[2020-11-03 05:47] LABS: Anion Gap 11 mmol/L (8-16); Calcium 8.3 mg/dL (8.5-10.1); Carbon Dioxide 26 mmol/L (21-32); Chloride 102 mmol/L (98-108); Estimated CRCL calculation 43 ml/min; Estimated Glomerular Filt Rate > 60; Glucose 171 mg/dL (70-99); Potassium 3.9 mmol/L (3.5-5.1); Sodium 139 mmol/L (136-145)
[2020-11-03 05:52] LABS: Blood Urea Nitrogen 19 mg/dL (7-18); Osmolality Calculated 294 mOsm/kg (285-295)
--- NOTE | 2020-11-03 06:15 | PC.NURSE ---
Patient resting quietly. IVF continue infusing to site in left hand without difficulty. Meyer catheter patent and draining clear hema urine. No distress noted. Call light in reach.
[2020-11-03] MEDS: SODIUM CHLORIDE 0.9% IV 1,000 ML 100 ML IV CONT ×2 (07:36→17:16)
[2020-11-03 07:41] VITALS: BP 114/52; PULSE 90; RESP 20; TEMP 37.3; O2SAT 96
[2020-11-03] MEDS: levETIRAcetam 500MG/NACL 100ML 500 MG/100 ML BAG 400 MG IVPB (08:34)
[2020-11-03] MEDS: LIDOCAINE 5% PATCH 1 PATCH TRANSDERM (08:35)
[2020-11-03] MEDS: ATORVASTATIN 40 MG TABLET PO (08:35)
[2020-11-03] MEDS: metFORMIN HCL 500 MG TABLET PO ×2 (08:35→16:56)
[2020-11-03] MEDS: ASPIRIN 81 MG ENTERIC TABLET PO (08:35)
--- NOTE | 2020-11-03 10:43 | PM.IMHP ---
H&P: HPI History of Present Illness Date/Time: 11/03/20 10:43 Pt comes to the hospital after being evaluated in the alf by his primary care provider, Dr. Lee, for seizures. Per ER report Pt had a witnessed seizure and some unwitnessed seizures. The staff at the alf informed ER staff they thought the Pt had a seizure that was unwitnessed because he had some sputum on his lips when they checked in on him. Lamictal level on 09/06/2021 was slightly low at 3.2 and it is unknown if the medication was increased or if Pt was not taking his medication. Hospital floor RNs from last night and today reported that Pt does not always take his PO mediations. Pt is A&Ox1 today. PMHx of CVA, Seizure, multiple falls, recurrent UTI, weakness, dementia, A fib, hyperlipidemia, HTN, T2DM. Chief Complaint: AMS, Seizure Review of Systems Review of Systems: ROS unobtainable: Yes unobtainable due to mental status (Pt is A&O to self and he knows what town he is in but not where he is. ) [facility] Past Medical History Medical History Acute respiratory distress Acute UTI AMS (altered mental status) (~06/26/19) Atrial fibrillation (Unknown) Chronic back pain greater than 3 months duration (Unknown) Dementia Dementia Diabetes mellitus DMII (diabetes mellitus, type 2) (Unknown) Elevated d-dimer History of CVA (cerebrovascular accident) HTN (hypertension) Hyperlipidemia Left cuboid fracture Recurrent UTI Seizure disorder URI (upper respiratory infection) Weakness Surgical History Surgical History H/O umbilical hernia repair History of back surgery Family History Family History Mother Family history of type 2 diabetes mellitus Father Alcoholism Social History Social History Smoking status: Unknown if ever smoked Tobacco type: cigarettes Second hand tobacco smoke exposure: No Smoking end date: 08/21/98 Alcohol intake: unknown Substance use: unknown Substance use type: does not use Additional living arrangements comments: Additional occupation/education comments: Retired [employer]er. Gender identity (if verbalized by the patient): Male Sexual Orientation (if Verbalized by the Patient): Straight or Heterosexual Agree to blood products: Yes Meds Home Medications and Allergies Home Medications Medication Instructions Recorded Confirmed Type melatonin 3 mg PO HS 30 Days #30 tablet 07/11/19 11/02/20 Rx metformin [Glucophage] 500 mg PO BIDWM 30 Days #60 tablet 07/11/19 11/02/20 Rx cranberry 450 mg PO TID 08/30/19 11/02/20 History fluticasone propionate [Allergy 1 spray NASAL DAILY PRN 08/30/19 11/02/20 History Relief (fluticasone)] magnesium hydroxide [Milk Of 30 ml PO DAILY PRN 08/30/19 11/02/20 History Magnesia Concentrated] aspirin 81 mg tablet,delayed 81 mg PO DAILY 08/12/20 11/02/20 History release atorvastatin 40 mg tablet 40 mg PO DAILY 08/12/20 11/02/20 History acetaminophen 500 mg tablet 500 mg PO Q6H PRN 10/15/20 11/02/20 History hydrocodone 5 mg-acetaminophen 325 1 tablet PO TID PRN tablet 10/15/20 11/02/20 History mg tablet lamotrigine 150 mg tablet 150 mg PO BID 10/15/20 11/02/20 History lidocaine 4 % topical patch 1 patch TOPICAL DAILY PRN 10/15/20 11/02/20 History Allergies Allergy/AdvReac Type Severity Reaction Status Date / Time morphine Allergy Intermediate Unknown Verified 10/15/20 09:22 nitrofurantoin Allergy Unknown Verified 10/15/20 09:22 Vital Signs Vital Signs - 24 hr 11/02/20 19:21 11/02/20 20:24 11/02/20 20:59 Temperature 100.3 F H 100.3 F H 99.9 F H Pulse Rate 106 H 110 H 106 H Respiratory Rate 18 20 18 Blood Pressure 141/63 H 149/51 H 130/54 L Pulse Oximetry 93 95 95 11/02/20 21:45 11/02/20 23:51
[2020-11-03] MEDS: LORazepam INJ (*CRX) 2 MG/ML VIAL 0.5 MG IV PUSH (10:45)
[2020-11-03] MEDS: HYDROcodone/acetaminophen (*CRX) 5-325 MG TABLET 1 TAB PO ×2 (10:46→20:01)
[2020-11-03 11:33] LABS: Glucose Point of Care 150 (65-105)
[2020-11-03 15:35] VITALS: BP 128/69; PULSE 88; RESP 18; TEMP 37.1; O2SAT 98
[2020-11-03 16:44] LABS: Glucose Point of Care 129 (65-105)
[2020-11-03] MEDS: MELATONIN 3 MG TABLET PO (20:01)
[2020-11-03 20:41] LABS: Glucose Point of Care 189 (65-105)
[2020-11-03] MEDS: levETIRAcetam 500MG/NACL 100ML 500 MG/100 ML BAG 250 MG IVPB (22:10)
[2020-11-03 23:49] VITALS: BP 113/77; PULSE 98; RESP 20; TEMP 36.8; O2SAT 92
[2020-11-04 05:18] LABS: Hematocrit 38.2 % (37.0-46.0); Hemoglobin 12.7 g/dL (12.4-15.3); Mean Corpuscular HGB Conc 33.2 g/dL (32.0-36.0); Mean Corpuscular Hemoglobin 29.6 pg (27.0-31.0); Mean Platelet Volume 8.7 fl (8.7-11.0); Platelet Count Result 230 K/mm3 (150-420); Red Blood Count 4.29 M/mm3 (4.70-6.10)
[2020-11-04 05:28] LABS: Anion Gap 10 mmol/L (8-16); Blood Urea Nitrogen 14 mg/dL (7-18); Calcium 8.2 mg/dL (8.5-10.1); Carbon Dioxide 26 mmol/L (21-32); Chloride 103 mmol/L (98-108); Estimated CRCL calculation 49 ml/min; Estimated Glomerular Filt Rate > 60; Glucose 127 mg/dL (70-99); Osmolality Calculated 290 mOsm/kg (285-295); Potassium 3.8 mmol/L (3.5-5.1); Sodium 139 mmol/L (136-145)
[2020-11-04] MEDS: SODIUM CHLORIDE 0.9% IV 1,000 ML 100 ML IV CONT ×2 (05:30→16:05)
--- NOTE | 2020-11-04 07:20 | PM.IMPN ---
Progress Note: A&P Assessment and Plan (1) Pneumonia: Qualifiers: Laterality: bilateral Lung location: lower lobe of lung Pneumonia type: due to unspecified organism Qualified Code(s): J18.9 - Pneumonia, unspecified organism Code(s): J18.9 - Pneumonia, unspecified organism Status: Acute Assessment and Plan: 11/03/2020 Azithromycin, supplemental O2 if needed, monitor VS, blood and urine Cx pending, turn Q2 hours, WBC improving today 11/04/2020 continue with Azithromycin and other above, has not required supplemental O2, blood and urine Cx pending, WBC continues to improve (2) Acute UTI: Code(s): N39.0 - Urinary tract infection, site not specified Status: Acute Assessment and Plan: 11/03/2020 Rocephin, IVF NS 100 mL/H, Trace protein and blood, RBC 3-5, WBC 4-6, Trace Bacteria, Pt has frequent UTIs and may be developing one now. Pt has Meyer Catheter 11/04/2020 Continue with Rocephin, IVFs, Urine Cx pending (3) Seizure disorder: Code(s): G40.909 - Epilepsy, unspecified, not intractable, without status epilepticus Status: Acute Assessment and Plan: 11/03/2020 Pt was not able to take his PO Lamictal and Keppra was started BID, monitor for seizures, requires assistance with feeding, Pt does have decreased mentation and per niece Pt has AMS when he gets a UTI 11/04/2020 Will restart Lamictal since Pt is more alert, taking other PO medications, no seizures reported, stopping Keppra (4) DMII (diabetes mellitus, type 2): Onset Date: Unknown Code(s): E11.9 - Type 2 diabetes mellitus without complications Status: Acute Assessment and Plan: 11/03/2020 continue metformin, glucose checks, hypoglycemic protocol in place, consistent carb diet 11/04/2020 Continue as above, Glucose levels: 150, 129, 189, 127 (5) Chronic back pain greater than 3 months duration: Onset Date: Unknown Code(s): M54.9 - Dorsalgia, unspecified; G89.29 - Other chronic pain Status: Acute Assessment and Plan: 11/03/2020 Lidocaine patch and norco continued from home medcations 11/04/2020 Continue with above regimen, Pt has not had any complaints of back pain today Subjective Date/time seen: 11/04/20 07:20 Pt is more alert today. With a little guiding Pt will stay on a topic for a little while longer. He still has difficulty knowing where he is but is able to hold better conversation today. Discussed with Pt about him possibly not taking his medication prior to his arrival at the hospital. Pt stated, Yeah, I can be a little stubborn. We discussed the need for him to take his oral medications and he said he would. To that end will restart his PO Lamictal. RN states that Pt did take his other PO medication today but only ate about 10% of his breakfast. Pt did not have any complaints today. Review of Systems Constitutional: Constitutional: Reports no additional constitutional complaints Cardiovascular: Cardiovascular: Reports no additional cardiovascular complaints, Denies chest pain and Denies chest pain at rest Respiratory: Respiratory: Reports no additional respiratory complaints and Denies dyspnea Gastrointestinal: Gastrointestinal: Reports no additional gastrointestinal complaints Musculoskeletal: Musculoskeletal: Reports no additional musculoskeletal complaints Exam Narrative: Exam Narrative: No reported seizures Const: General: cooperative (some times, not very cooperative when staff was cleaning him post BM), comfortable, no acute distress, alert, awake and Physically active (does attempt to get up) Nutritional Appearance: average body habitus Resp: Effort & Inspection: normal respiratory effort Auscultation: diminished lung sounds diffuse Cardio: Rate: regular rate Heart sounds: S1 normal heart sound present and S2 normal heart sound present GI: GI Palp: Yes Soft to palpation Auscultation: normal bowel sounds Urinary Catheter: Urinary Catheter: patent a
[2020-11-04 07:25] VITALS: BP 147/68; PULSE 94; RESP 18; TEMP 37.6; O2SAT 96
[2020-11-04] MEDS: ATORVASTATIN 40 MG TABLET PO (08:22)
[2020-11-04] MEDS: metFORMIN HCL 500 MG TABLET PO ×2 (08:22→16:07)
[2020-11-04] MEDS: ASPIRIN 81 MG ENTERIC TABLET PO (08:22)
[2020-11-04] MEDS: LIDOCAINE 5% PATCH 1 PATCH TRANSDERM (08:23)
[2020-11-04] MEDS: levETIRAcetam 500MG/NACL 100ML 500 MG/100 ML BAG 250 MG IVPB (08:23)
[2020-11-04 11:41] LABS: Glucose Point of Care 186 (65-105)
[2020-11-04] MEDS: HYDROcodone/acetaminophen (*CRX) 5-325 MG TABLET 1 TAB PO ×2 (13:43→20:50)
[2020-11-04 16:00] VITALS: BP 123/76; PULSE 70; RESP 18; TEMP 37.2; O2SAT 94
[2020-11-04 16:51] LABS: Glucose Point of Care 170 (65-105)
[2020-11-04] MEDS: MELATONIN 3 MG TABLET PO (20:13)
[2020-11-04] MEDS: lamoTRIgine 100 MG TABLET 150 MG PO (20:13)
[2020-11-04 20:23] LABS: Glucose Point of Care 173 (65-105)
[2020-11-05] VITALS: BP 132/83; PULSE 92; RESP 20; TEMP 36.9; O2SAT 93
--- NOTE | 2020-11-05 02:26 | PC.NURSE ---
pt sleeping, no evidence of distress noted, bed alarm on, iv alarms on
[2020-11-05] MEDS: SODIUM CHLORIDE 0.9% IV 1,000 ML 100 ML IV CONT (03:30)
[2020-11-05 05:31] LABS: Hematocrit 37.6 % (37.0-46.0); Hemoglobin 12.6 g/dL (12.4-15.3); Mean Corpuscular HGB Conc 33.5 g/dL (32.0-36.0); Mean Corpuscular Hemoglobin 29.2 pg (27.0-31.0); Mean Corpuscular Volume 87.2 fL (78.0-102.0); Mean Platelet Volume 9.1 fl (8.7-11.0); Platelet Count Result 266 K/mm3 (150-420); Red Blood Count 4.31 M/mm3 (4.70-6.10); Red Cell Distribution Width 13.7 % (11.6-14.4); White Blood Count 14.7 K/mm3 (4.8-10.8)
[2020-11-05 05:43] LABS: Anion Gap 11 mmol/L (8-16); Blood Urea Nitrogen 8 mg/dL (7-18); Calcium 8.2 mg/dL (8.5-10.1); Carbon Dioxide 25 mmol/L (21-32); Chloride 101 mmol/L (98-108); Estimated CRCL calculation 57 ml/min; Estimated Glomerular Filt Rate > 60; Glucose 133 mg/dL (70-99); Osmolality Calculated 284 mOsm/kg (285-295); Potassium 3.3 mmol/L (3.5-5.1); Sodium 137 mmol/L (136-145)
[2020-11-05 07:49] VITALS: BP 160/75; PULSE 106; RESP 18; TEMP 37.9; O2SAT 93
[2020-11-05 08:10] LABS: Magnesium 1.7 mg/dL (1.8-2.4)
[2020-11-05] MEDS: MAGNESIUM SULF 4 GM/WATER100ML 4 GM/100 ML BAG IVPB (08:43)
[2020-11-05] MEDS: POTASSIUM CHLORIDE 20 MEQ TABLET 40 MEQ PO (08:44)
[2020-11-05] MEDS: HYDROcodone/acetaminophen (*CRX) 5-325 MG TABLET 1 TAB PO (08:44)
[2020-11-05] MEDS: ASPIRIN 81 MG ENTERIC TABLET PO (08:44)
[2020-11-05] MEDS: ATORVASTATIN 40 MG TABLET PO (08:44)
[2020-11-05] MEDS: lamoTRIgine 100 MG TABLET 150 MG PO (08:45)
[2020-11-05] MEDS: metFORMIN HCL 500 MG TABLET PO (08:45)
--- NOTE | 2020-11-05 10:49 | PM.DS ---
DS: Admitting Diagnosis Admitting Diagnosis Admitting Diagnosis: Pneumonia, UTI, Seizures DS: Discharge Diagnosis Discharge Diagnosis (1) Pneumonia: Qualifiers: Laterality: bilateral Lung location: lower lobe of lung Pneumonia type: due to unspecified organism Qualified Code(s): J18.9 - Pneumonia, unspecified organism Code(s): J18.9 - Pneumonia, unspecified organism Status: Acute Assessment and Plan: 11/03/2020 Azithromycin, supplemental O2 if needed, monitor VS, blood and urine Cx pending, turn Q2 hours, WBC improving today 11/04/2020 continue with Azithromycin and other above, has not required supplemental O2, blood and urine Cx pending, WBC continues to improve 11/05/2020 will DC with 2 doses of Azithromycin to finish course of Ab, no increased O2 demands, mentation is better today, Pt was able to communicate better (2) Acute UTI: Code(s): N39.0 - Urinary tract infection, site not specified Status: Acute Assessment and Plan: 11/03/2020 Rocephin, IVF NS 100 mL/H, Trace protein and blood, RBC 3-5, WBC 4-6, Trace Bacteria, Pt has frequent UTIs and may be developing one now. Pt has Meyer Catheter 11/04/2020 Continue with Rocephin, IVFs, Urine Cx pending 11/05/2020 Urine Cx shows no growth (3) Seizure disorder: Code(s): G40.909 - Epilepsy, unspecified, not intractable, without status epilepticus Status: Acute Assessment and Plan: 11/03/2020 Pt was not able to take his PO Lamictal and Keppra was started BID, monitor for seizures, requires assistance with feeding, Pt does have decreased mentation and per niece Pt has AMS when he gets a UTI 11/04/2020 Will restart Lamictal since Pt is more alert, taking other PO medications, no seizures reported, stopping Keppra 11/05/2020 Pt is taking his Lamictal, will need close f/u with PCP (4) DMII (diabetes mellitus, type 2): Onset Date: Unknown Code(s): E11.9 - Type 2 diabetes mellitus without complications Status: Acute Assessment and Plan: 11/03/2020 continue metformin, glucose checks, hypoglycemic protocol in place, consistent carb diet 11/04/2020 Continue as above, Glucose levels: 150, 129, 189, 127 11/05/2020 glucose well controlled, no changes to medications on DC (5) Chronic back pain greater than 3 months duration: Onset Date: Unknown Code(s): M54.9 - Dorsalgia, unspecified; G89.29 - Other chronic pain Status: Acute Assessment and Plan: 11/03/2020 Lidocaine patch and norco continued from home medcations 11/04/2020 Continue with above regimen, Pt has not had any complaints of back pain today 11/05/2020 continue with home regimen on DC DS: Summary Hospital Course Hospital Course: mental status improved, now taking PO medications, had 3 days of Rocephin for UTI, will send home with 2 doses of Azithromycin to finish course Time Spent with Patient Time attestation: Total time spent providing and/or coordinating discharge services: < 30 minutes Exam Const: General: cooperative, comfortable, no acute distress, alert and awake Nutritional Appearance: average body habitus HENMT: Ears: other (Makes good eye contact today) Resp: Effort & Inspection: normal respiratory effort Auscultation: rales (right posterior middle and lower otherwise clear) and diminished lung sounds diffuse Cardio: Rate: regular rate Heart sounds: S1 normal heart sound present, S2 normal heart sound present, no click, no gallops, no murmurs and no rubs GI: GI Palp: Yes Soft to palpation and No Tenderness to palpation present (GI) Auscultation: normal bowel sounds Urinary Catheter: Urinary Catheter: patent and draining and urine clear Neuro: General: oriented to person, oriented to place and other (appears to be at baseling) Extrem: General: no pedal edema DS: Data Data Completed and Pending Labs on day of discharge: Labs from last 24 hours 11/05/20 11/05/20 11/05/20 07:58 05:20 05:20 WBC 14.7 H RBC
[2020-11-05 11:29] LABS: Glucose Point of Care 211 (65-105)
[2020-11-05] MEDS: LIDOCAINE 5% PATCH 1 PATCH TRANSDERM (11:58)
--- NOTE | 2020-11-05 14:04 | PC.NURSE ---
LFA#20 IV removed. Catheter intact. 16 nauruan vernon removed. Tolerated well by patient. Report called to Stephanie GUERRA, [facility]. long term will be bringing wheelchair to transport patient
--- NOTE | 2020-11-16 11:22 | PC.NURSE ---
[facility] states they received and had no issues with the discharge instructions.
== END 2020-11-05 14:35 | DRG 194 ==
LOC: CHSED 20:50 → CHS2ND 21:09
PROVIDERS: Nurse Practitioner Family; Admitting Provider Emergency Medicine; Emergency Provider Emergency Medicine; PCP Family Medicine; Visit Provider Emergency Medicine
DX: N39.0 Urinary tract infection, site not specified (principal); J18.9 Pneumonia, unspecified organism; R56.9 Unspecified convulsions; I10 Essential (primary) hypertension; I48.20 Chronic atrial fibrillation, unspecified; E11.9 Type 2 diabetes mellitus without complications; E78.5 Hyperlipidemia, unspecified; M54.9 Dorsalgia, unspecified; G89.29 Other chronic pain; F03.90 Unspecified dementia, unspecified severity, without behavioral disturbance, psychotic disturbance, mood disturbance, and anxiety; Z87.891 Personal history of nicotine dependence; Z86.73 Personal history of transient ischemic attack (TIA), and cerebral infarction without residual deficits; G40.909 Epilepsy, unspecified, not intractable, without status epilepticus; Z79.82 Long term (current) use of aspirin
CPT/HCPCS: 36415; 70450; 71045; 80048; 80053; 81001; 82948; 83605; 83735; 85025; 85027; 87040; 87086; 96374; 99285; A9270; J0456; J0696; J1953; J2060; J3475; J7030

== ENCOUNTER 2021-03-02 11:03 | Outpatient (NON) | payer MEDICARE, SELFPAY ==
[2021-03-02 11:40] LABS: Hemoglobin A1C 6.6 % (<5.7)
== END 2021-03-02 11:04 | disposition home or self-care (01) ==
PROVIDERS: Visit Provider Family Medicine
DX: E11.9 Type 2 diabetes mellitus without complications (principal)
CPT/HCPCS: 36415; 83036

== ENCOUNTER 2021-03-20 07:03 | Outpatient (NON) | payer MEDICARE, SELFPAY ==
[2021-03-20 07:34] LABS: Appearance Urine Clear (Clear); Bilirubin Urine Negative (Negative); Color Urine Light Yellow (Yellow); Glucose Urine UA Negative (Negative); Ketones Urine Negative (Negative); Leukocyte Esterase Ur 2+ (Negative); Nitrate Urine Negative (Negative); Protein Urine Trace (Negative); Urobilinogen Urine 0.2 mg/dL (0.2-1.0)
[2021-03-20 07:37] LABS: Add Urine Microscopic? YES; Bacteria Urine Trace /hpf; Blood Urine Trace-Intact (Negative); RBC Urine None seen /hpf (0-2); Squamous Epithelial Cell Urine Rare /hpf (Few); WBC Urine 16-20 /hpf (0-3)
== END 2021-03-20 07:04 | disposition home or self-care (01) ==
LOC: CHSLAB 07:04
PROVIDERS: PCP Family Medicine; Visit Provider Family Medicine
DX: N39.0 Urinary tract infection, site not specified (principal)
CPT/HCPCS: 81001

== ENCOUNTER 2021-03-23 06:49 | Outpatient (NON) | payer MEDICARE, SELFPAY ==
[2021-03-23 07:29] LABS: Occult Blood Positive (Negative)
[2021-03-23 07:29] LABS: Occult Blood Positive (Negative)
[2021-03-23 08:08] LABS: Alanine Aminotransferase 34 U/L (16-63); Albumin Level 3.4 g/dL (3.4-5.0); Alkaline Phosphatase 92 U/L (46-116); Anion Gap 17 mmol/L (8-16); Aspartate Amino Transferase 27 U/L (15-37); Bilirubin,Total 1.2 mg/dL (0.00-1.00); Blood Urea Nitrogen 67 mg/dL (7-18); CRP 7.3 mg/dL (0.0-0.9); Carbon Dioxide 24 mmol/L (21-32); Chloride 113 mmol/L (98-108); Estimated Glomerular Filt Rate 20; Ferritin 710 ng/mL (26-388); Glucose 182 mg/dL (70-99); Lactate Dehydrogenase 273 U/L (85-227); Osmolality Calculated 342 mOsm/kg (285-295); Sodium 154 mmol/L (136-145); Thyroid Stimulating Hormone 0.21 uIU/mL (0.36-3.74); Total Protein 6.7 g/dL (6.4-8.2)
[2021-03-23 08:55] LABS: Erythrocyte Sedimentation Rate 22 mm/hr (0-30)
[2021-03-23 13:07] LABS: Occult Blood Positive (Negative)
== END 2021-03-23 06:50 | disposition home or self-care (01) ==
PROVIDERS: Visit Provider Family Medicine
DX: I48.91 Unspecified atrial fibrillation (principal); E11.9 Type 2 diabetes mellitus without complications; E78.5 Hyperlipidemia, unspecified; I10 Essential (primary) hypertension; R19.7 Diarrhea, unspecified
CPT/HCPCS: 36415; 80053; 82272; 82728; 83615; 84443; 85652; 86140